=== PATIENT | female | born 1965 | race Caucasian/White ===

== ENCOUNTER 2024-03-17 14:21 | Inpatient (IN) | payer OTHER, SELFPAY ==
[2024-03-17 08:00] VITALS: BP 169/111
--- NOTE | 2024-03-17 09:02 | ED.GENMED ---
History of Present Illness
General
Chief Complaint: Abdominal Pain
Time Seen by Provider: 03/17/24 08:48
Travel History
Have you had any contact with someone who has COVID-19?: No
Do you have any symptoms of coronavirus? Fever > 100 degrees, chills, cough, shortness of breath, sore throat, loss of taste or smell, muscle aches, or headache?: No
History of Present Illness
History of Present Illness:
58-year-old female with history of hepatitis C, drug induced cardiomyopathy, tobacco abuse, and hypertension presents to the emergency department for ration of epigastric pain over the past 3 days. She associates this with nausea and a headache,
denies vomiting, diarrhea, or melena stools. Pain is pleuritic in nature and she feels as though she cannot take a deep breath. Denies frequent alcohol use or NSAID use. No associated fevers or chills. Prior abdominal surgeries include
hysterectomy and appendectomy
Review of Systems
Review of Systems
Allergies reviewed?: Yes
All Other Systems: ROS reviewed and negative except as documented in HPI and ROS
Phy Exam
Physical Exam
Physical Exam:
GEN: Appears uncomfortable, nontoxic
Eyes: PERRLA, EOMs intact, no scleral icterus
HENT: NCAT, oral mucosa moist
Lungs: CTAB, no wheezes, rales, rhonchi, normal chest wall excursion
Cardiac: RRR, no M/R/G, no peripheral edema. Radial pulses 2+ bilat
Abdomen: Soft, exquisitely tender to the right upper quadrant and epigastrium, unable to assess for Pierce sign due to degree of tenderness
Neuro: AO x 3
MSK: No gross deformity or ecchymosis. No edema. No digital clubbing
Skin: No rashes, petechiae. Normal color, no pallor or jaundice.
Psych: Calm, cooperative, proper hygiene
Course
Orders/Labs/Results
Orders:
Orders
03/17/24 08:09
Electrocardiogram (*1) Urgent
Reason for Study: Abdominal Pain
EKG- Treatment ONCE
03/17/24 09:01
0.9% Sodium Chloride 1000 ml [Nss] 1,000 ml IV BOLUS
Morphine Sulfate 4 mg IV NOW STA
Ondansetron Injectable [Zofran] 4 mg IV NOW STA
03/17/24 09:25
Complete Blood Count/With Diff Urgent
Comprehensive Metabolic Panel Urgent
Lipase Urgent
Troponin I Urgent
Urinalysis Reflex To Culture Urgent
Date Specimen was Collected: 03/17/24
Time Specimen was Collected: 09:03
Urine Microscopic Reflex Cult Urgent
Urine Culture Urgent
MASOUD Source: U
Specimen Description:
Date Specimen was Collected: 03/17/24
Time Specimen was Collected: 09:03
03/17/24 10:04
CT Abd/Pel (IV only)-DH only Urgent
Comment:
Reason For Exam: epigastric pain
03/17/24 11:58
Piperacillin/Tazo 3.375 Gram [Zosyn] 3.375 gram in 50 ml IV NOW
03/17/24 12:19
HYDROmorphone [Dilaudid] 0.5 mg IV NOW STA
03/17/24 13:33
Admit/Transfer Patient As Directed
Co-Sign Provider:
Level of Care: Inpatient admission
Assign to:: Medical/Surgical
Physician / Group: Bob
Diagnosis: Acute cholecystitis
Reason for Hospitalization: see progress note
Expected length of stay greater than two midnights?: Yes
ELOS- Estimated Length of Stay in days: 3
I certify the patient meets the requirements for IP care: Yes
03/17/24 13:35
Code Status As Directed
Resuscitation Status: Full Code
Abnormal Lab Results
03/17/24
09:25
RBC 4.04 L 10^6/uL
(4.20-5.40)
Hgb 11.6 L g/dL
(12.0-16.0)
Hct 34.9 L %
(37.0-47.0)
MPV 12.0 H fL
(7.4-10.4)
Absolute Monos (auto) 0.8 H 10^3/uL
(0.1-0.6)
Monocytes % 9.7 H %
(1.7-9.3)
Chloride 108 H mmol/L
(98-107)
BUN 24 H mg/dl
(7-17)
Glucose 100 H mg/dl
(70-99)
Troponin I 0.041 H* ng/ml
Leukocyte Esterase Rfl 1+ A
(Negative)
Urine RBC 3-6 A /HPF
(0-2)
Urine Bacteria (Reflex) Few A
(Negative)
03/17/24 09:25
03/17/24 09:25
Vital Signs
Initial and Last Documented VS:
Initial Vital Signs
Temp Pulse Resp BP Pulse Ox
98.2 F 98 20 169/111 98
03/17/24 08:00 03/17/24 08:00 03/17/24 08:00 03/17/24 08:00 03/17/24 08:00
Last Documented Vital Signs
Temp Pulse Resp BP Pulse Ox
98.2 F 95 17 143/100 96
03/17/24 08:00 03/17/24 11:37 03/17/24 11:37 03/17/24 11:37 03/17/24 11:20
MDM/Problems Addressed
MDM/Problems Addressed:
Workup is highly suspicious for acute cholecystitis given findings on CT scan. No significant transaminitis to suggest choledocholithiasis. Interestingly she has no leukocytosis or fever at this point. Do not feel there is any indication for
follow-up ultrasound given CT findings and exam consistent with acute cholecystitis. Discussed case with general surgery, given the patient's underlying nonischemic cardiomyopathy with severely reduced ejection fraction she is high risk for
operative intervention thus will be admitted to the hospitalist service for further medical optimization and cardiac clearance, IV Zosyn initiated
Comment
Comment:
EKG independently interpreted by me shows a normal sinus rhythm with 6% lateral ST depressions with T wave inversions suggestive LVH prolonged QT interval of 490
*Critical Care Note
Total Time (30-74mins, 75-104mins- exclusive of procedures): Not Applicable
ED Attending Note
-
Portions of this chart may have been created with voice recognition software.� Occasional wrong word or��sound alike� substitutions may have occurred due to the inherent limitations of voice recognition software.
Discharge Plan
Departure
Patient Disposition: Admit
Date of Disposition: 03/17/24
Time of Disposition: 12:19
Admit to: Med/Surg
Presentation/result/management discussed w/ accepting MD/DO: Hospitalist
Discharge Problem:
Acute cholecystitis, Elevated troponin level not due to acute coronary syndrome
Prescriptions:
No Action
furosemide 40 mg tablet
40 mg PO DAILY
metoprolol succinate 50 mg tablet extended release 24 hr
50 mg PO DAILY
spironolactone 25 mg tablet
12.5 mg PO DAILY
aspirin 81 mg tablet,chewable
81 mg PO DAILY
mirtazapine 15 mg tablet
15 mg PO HS
dapagliflozin propanediol [Farxiga] 10 mg tablet
10 mg PO DAILY
Entresto 24-26 mg tablet
1 tab PO BID
Referrals:
Suzanne Cabrera DO [Family Provider] -
Interventions
Interventions:
*Risk Screen - Suicide Last Done: 03/17/24 09:23
*General Assessment Last Done: 03/17/24 09:21
*Neglect/Abuse Screening Last Done: 03/17/24 09:23
IX-Ljkrdi-Lrkatraljl Assessment Last Done: 03/17/24 09:25
Discharge Date and Time
Print Language: ANGUILLAN
[2024-03-17] MEDS: NSS 1000 IV ×2 (09:19→17:14)
[2024-03-17] MEDS: MORPHINE SULFATE 4 MG IV (09:20)
[2024-03-17] MEDS: ZOFRAN 4 MG IV (09:20)
[2024-03-17 09:21] VITALS: BMI 29.8
[2024-03-17 09:45] LABS: % Basophils 0.5 % (0-2); % Eosinophils 1.4 % (0-6); % Immature Granulocytes 0.2 % (0-0.5); % Lymphocytes 40.3 % (20.5-51.1); % Monocytes 9.7 % (1.7-9.3); % Neutrophils 47.9 % (42.2-75.2); Absolute Eosinophils 0.1 10^3/uL (0-0.7); Absolute Lymphocytes 3.4 10^3/uL (1.2-3.4); Absolute Monocytes 0.8 10^3/uL (0.1-0.6); Hematocrit 34.9 % (37.0-47.0); Hemoglobin 11.6 g/dL (12.0-16.0); Mean Corp Hgb Conc. 33.2 g/dL (33.0-37.0); Mean Corpuscular Hgb 28.7 pg (27.0-31.0); Mean Corpuscular Volume 86.4 fL (81.0-99.0); Nucleated Red Blood Cells % 0 %; Platelet Count 201 10^3/uL (130-400); Red Blood Cell Count 4.04 10^6/uL (4.20-5.40); Red Cell Dist. Width 13.1 % (11.5-14.5); White Blood Cell Count 8.4 10^3/uL (4.8-10.8)
[2024-03-17 09:56] VITALS: BP 142/97
[2024-03-17 10:03] LABS: ALT (SGPT) 33 U/L (0-35); AST (SGOT) 36 U/L (14-36); Albumin 3.9 g/dl (3.5-5.0); Alkaline Phosphatase 64 U/L (38-126); Blood Urea Nitrogen 24 mg/dl (7-17); Calcium 8.4 mg/dl (8.4-10.2); Carbon Dioxide 23 mmol/L (22-30); Chloride 108 mmol/L (98-107); Estimated Creatinine Clearance 80 ml/min; Glucose 100 mg/dl (70-99); Lipase 107 U/L (23-300); Potassium 3.9 mmol/L (3.5-5.1); Sodium 140 mmol/L (135-145); Total Bilirubin 0.6 mg/dl (0.2-1.3); Total Protein 6.7 g/dl (6.3-8.2); eGFR > 60.00
[2024-03-17 10:11] LABS: Urine Albumin Trace (Neg - Trace); Urine Bilirubin Negative (Negative); Urine Character Clear (Clear); Urine Color Yellow; Urine Glucose Negative (Negative); Urine Ketone Negative (Negative); Urine Leukocyte 1+ (Negative); Urine Nitrite Negative (Negative); Urine Occult Blood Negative (Negative); Urine Specific Gravity 1.025 (<1.030); Urine Urobilinogen 1+ (Neg - 1+)
[2024-03-17 10:21] LABS: Troponin I 0.041 ng/ml
[2024-03-17 10:38] LABS: Urine Squamous Cell >30 /LPF (Few)
[2024-03-17 10:39] LABS: Urine Bacteria Few (Negative); Urine Calcium Oxalate Crystals Present
[2024-03-17 11:37] VITALS: BP 143/100
[2024-03-17] MEDS: ZOSYN 50 IV (12:55)
[2024-03-17] MEDS: DILAUDID 0.5 MG IV (12:56)
--- NOTE | 2024-03-17 13:40 | CON.GS ---
Medical History
-
Chief Complaint: Epigastric abdominal pain
History of Present Illness:
Patient is a 58 yo F with a PMH of HTN, history of drug abuse c/b HCV and drug-induced cardiomyopathy (EF 20% on TTE in 04/2023), and active tobacco use. She is coming to the hospital by her friend who helps provide some clinical history. Reports
feeling unwell with increased deconditioning and SOB over the past several months. Approximately 3 days ago she acutely developed epigastric and upper central abdominal pain radiating to her back. Symptoms occurred at night and awoke her from
sleep. Since that time she has had persistent abdominal discomfort. Symptoms worsened prompting presentation to the ED. Associated nausea, but no vomiting. No fevers or chills. No fluctuations in stools. No jaundice, pale stools, or tea
colored urine. She denies any prior history of RUQ or epigastric abdominal pain. Of note, she follows with Dr. Cobb, last evaluated in 05/2023 with plans for repeat TTE in 07/2023, s He had he did not follow-up.
Past Medical History
Past Medical History: CHF, HTN and Other (HCV)
Past Surgical History: Appendectomy, Gynecological (Hysterectomy) and Other (Abdominoplasty)
Social History
Tobacco: Smoker
Alcohol: None
Drug: Cocaine, IVDA and Other (Phencyclidine, amphetamines, methamphetamines, BZD's)
Family History
Family History: Reviewed & Noncontributory
Allergies / Home Medications
Allergy/AdvReac Type Severity Reaction Status Date / Time
ipecac Allergy Unknown Verified 03/17/24 08:07
prochlorperazine Allergy Unknown Verified 03/17/24 08:07
�Medication �Instructions �Recorded �Confirmed �Type
aspirin 81 mg chewable tablet 81 mg PO DAILY Blood Clot 03/17/24 03/17/24 History
Prevention/Tx
dapagliflozin propanediol 10 mg 10 mg PO DAILY Heart Failure 03/17/24 03/17/24 History
tablet (Farxiga)
furosemide 40 mg tablet 40 mg PO DAILY Fluid 03/17/24 03/17/24 History
Retention/Swelling
metoprolol succinate 50 mg 50 mg PO DAILY Heart Failure 03/17/24 03/17/24 History
tablet,extended release 24 hr
mirtazapine 15 mg tablet 15 mg PO HS Mental Health 03/17/24 03/17/24 History
sacubitril 24 mg-valsartan 26 mg 1 tab PO BID Heart Failure 03/17/24 03/17/24 History
tablet (Entresto)
spironolactone 25 mg tablet 12.5 mg PO DAILY Heart Failure 03/17/24 03/17/24 History
Review of Systems
-
A 10 point review of systems was completed, and was negative except as per HPI.
Physical Exam
Vital Signs
Temp Pulse Resp BP Pulse Ox
98.2 F 95 17 143/100 96
03/17/24 08:00 03/17/24 11:37 03/17/24 11:37 03/17/24 11:37 03/17/24 11:20
03/16/24 03/17/24 03/18/24
06:59 06:59 06:59
Actual Weight 78.6 kg
Body Mass Index (BMI) 29.8
Lab Results
03/17/24 09:25
03/17/24 09:25
WBC 8.4 10^3/uL (4.8-10.8) 03/17/24 09:25
Hgb 11.6 g/dL (12.0-16.0) L 03/17/24 09:25
Hct 34.9 % (37.0-47.0) L 03/17/24 09:25
Plt Count 201 10^3/uL (130-400) 03/17/24 09:25
Abs Immat Gran (auto) 0.0 10^3/uL (0-0.05) 03/17/24 09:25
Neutrophils % 47.9 % (42.2-75.2) 03/17/24 09:25
Physical Exam
General: Well Developed, Well Nourished and Pain
HEENT: Normocephalic and Anicteric
Respiratory: Rhonchi and Accessory Resp Muscle Use
Cardiac: Regular Rhythm
GI: Soft, Non Distended, Tender (Epigastrium and RUQ) and Other (Non-peritoneal)
Musculoskeletal: No Edema
Skin: Warm and Dry
Neuro: Nonfocal/Grossly Intact
Data Reviewed
-
CT Scan: Image Personally Visualized and interpreted and Report Reviewed by me
Ultrasound: Image Personally Visualized and interpreted and Report Reviewed by me
Labs: Labs Reviewed by me
Old Records: Reviewed
Assessment / Plan
-
Patient is a 58 yo F p/w upper abdominal pain most likely biliary in origin given imaging.
The natural history and pathophysiology of biliary and stone disease was discussed. Anatomy was reviewed. Work-up thus far including US, CT scan, and labs were reviewed. US without stones though likely sludge and polyp without dilation and with
some thickening. CT scan demonstrates edema around the gallbladder and periportal area with what appears to be a dilated CBD and/or pancreatic duct. Increased risk for operative complications given her significant heart history. Recommend
Cardiology consultation and likely repeat TTE for risk stratification. Plan for MRI abdomen in the interim to better elucidate her biliary ductal dilation and rule out alternative pathology. Pending the results of imaging and her risk
stratification we briefly discussed proceeding with cholecystectomy versus cholecystostomy tube placement. Pros and cons of both approaches was discussed. All questions answered.
-- MRI abdomen
-- Cardiology consult, TTE, risk stratification
-- NPO, IVF
-- Abx: Zosyn
-- Admit to Hospitalist
--- NOTE | 2024-03-17 14:58 | HPS.HSE ---
Family Physician
-
Family Physician: Suzanne Cabrera
Chief Complaint
-
Abdominal pain
History of Present Illness
Patient presents with 3 days of abdominal pain.
The epigastric and area. Radiates up and into the back. Score is 9 out of 10. Cannot breath sometimes because of the pain in epigastric area.
It is a constant pain. Cannot eat. Nauseous. No vomiting. No fevers. Never had similar complaints. Denies any NSAID use.
CT imaging shows concerns for cholecystitis.
She had cardiomyopathy from drug use diagnosed a year ago. She says she has been compliant with her medication and follows-up with a precision millwright. Denies any exertional shortness of breath chest pains or angina. Coming to the hospital.
She denies any alcohol use. Smokes currently. Denies any further drug use.
Medical History
Past Medical History
Past Medical History: Reports CHF, HTN and Other (Nonischemic cardiomyopathy, history of polysubstance abuse, history of hepatitis C)
Past Surgical History: Reports None
Social History
Tobacco: Smoker
Alcohol: None
Drug: Former User
Living: With Family
Family History
Family History: Not pertinent
Allergies / Home Medications
Allergies reflects when Allergies were last updated in [employer].
Home Medications with original date entered in [employer]
Allergy/Medication List:
Allergies
Allergy/AdvReac Type Severity Reaction Status Date / Time
ipecac Allergy Unknown Verified 03/17/24 08:07
prochlorperazine Allergy Unknown Verified 03/17/24 08:07
Home Medications
aspirin 81 mg chewable tablet 81 mg PO DAILY Blood Clot Prevention/Tx 03/17/24
dapagliflozin propanediol 10 mg tablet (Farxiga) 10 mg PO DAILY Heart Failure 03/17/24
furosemide 40 mg tablet 40 mg PO DAILY Fluid Retention/Swelling 03/17/24
metoprolol succinate 50 mg tablet,extended release 24 hr 50 mg PO DAILY Heart Failure 03/17/24
mirtazapine 15 mg tablet 15 mg PO Mental Health 03/17/24
sacubitril 24 mg-valsartan 26 mg tablet (Entresto) 1 tab PO BID Heart Failure 03/17/24
spironolactone 25 mg tablet 12.5 mg PO DAILY Heart Failure 03/17/24
Review of Systems
-
A 12 point ROS was completed and negative except as noted: Yes
Physical Exam
Vital Signs
Vital Signs
Temp Pulse Resp BP Pulse Ox
98.2 F 95 17 143/100 96
03/17/24 08:00 03/17/24 11:37 03/17/24 11:37 03/17/24 11:37 03/17/24 11:20
Physical Exam
General: Comfortable
HEENT: Moist mucous membranes
Respiratory: Clear
Cardiac: S1/S2 and Regular Rhythm
GI: Soft, Non Distended, Normal Bowel Sounds and Tender (In epigastric and right upper quadrant area.)
Neuro: AO x 3
Psych: Calm
Laboratory Results
-
03/17/24 09:25
03/17/24 09:25
Laboratory Results
Total Bilirubin 0.6 mg/dl (0.2-1.3) 03/17/24 09:25
AST 36 U/L (14-36) 03/17/24 09:25
ALT 33 U/L (0-35) 03/17/24 09:25
Alkaline Phosphatase 64 U/L (38-126) 03/17/24 09:25
Troponin I 0.041 ng/ml H* 03/17/24 09:25
Lipase 107 U/L (23-300) 03/17/24 09:25
Data Reviewed
-
CT Scan: Report Reviewed by me (CT abdomen pelvis)
Lab Data: Labs Reviewed by me
Impression/Plan
-
Acute cholecystitis-admit to hospital. Keep NPO. Check an MRI with MRCP of abdomen. Consult surgery. Start on empirical ceftriaxone and Flagyl. Start on antiemetics and pain regimen.
LFTs are normal including lipase.
Nonischemic cardiomyopathy from drug use-no clinical evidence of heart failure. No angina. She had a cardiac catheterization last year without any obstruction. Continue with her home regimen. Consult cardiology for preop eval.
Hypertension-continue the home medications and follow-up.
--- NOTE | 2024-03-17 16:22 | CON.CAR ---
Addendum entered and electronically signed by Yimi Zabala MD 03/17/24 17:02:
I saw and examined the patient.
The MACHINE OPERATOR SLITTER TECHNICIAN or PA's note was reviewed and I agree with the note.
Comment: Moderate pain at present
Neck: Supple, no JVD, HJR, carotids +2 B/L, no bruits bilaterally.
Heart: Non displaced PMI, RRR, no murmurs, No S3, S4, no rubs.
Lungs: Clear to auscultation bilaterally, no wheeze, rhonchi, rubs bilaterally,
normal expiratory phase.
Abdomen: Normal bowel sounds, soft, non-tender, non-distended.
Extremities: No clubbing, cyanosis or edema bilaterally.
Neuro: In moderate pain at present
Charleen has a history of nonischemic cardiomyopathy with ejection fraction of 20 to 25% in April 2023 who was noncompliant with follow-up. She has a history of polysubstance abuse,tobacco abuse, hypertension, hepatitis C. She presents with 3 days
of abdominal pain and acute cholecystitis. Cardiology is consulted for preoperative evaluation.
Will await results of echocardiogram. If surgery is needed emergently with fear of sepsis and complications of cholecystitis would proceed without further testing. Risk will be increased but not prohibitive. She has been noncompliant with
follow-up. AICD was discussed in the past if ejection fraction remains reduced but unclear if she has been compliant with medications.
Original Note:
Consultation
Consultation Request
Date/Time Consultation Requested: 03/17/24
Date/Time Consultation Performed: 03/17/24
Requesting Provider: Dr. Bob
Performing Provider: Dr. Zabala
Reason for Consultation: Preo-operative evaluation, cardiomyopathy, noncompliance
Medical History
-
History of Present Illness:
Patient came to [facility] AT [facility] today with 3 days worth of abdominal pain and was found to have acute cholecystitis and cardiology has been asked to evaluate for preoperative risk stratification due to h/o NICM. Patient previously admitted to 04/2023 in the
setting of acute HF. Patient was found to have a newly reduced EF at 20-25% and subsequent cath showed nonobstructive CAD. Patient was managed as a nonischemic cardiomyopathy and was started on GDMT including Entresto 24/26 mg BID, Farxiga 10 mg
daily, Lasix 40 mg daily, Toprol XL 25 mg daily and spironolactone 12.5 mg daily. Patient was seen in the cardiology office once after that admission, on 05/24/23, and her Toprol XL was decreased to 25 mg daily. Patient was scheduled for a follow up
echo and office visit 09/03/23 and was a no-show. Patient now comes to [facility] AT [facility] with abdominal pain and is being admitted with acute cholecystitis. On abdominal MRI there was evidence of pleural effusions and acute interstitial cardiogenic pulmonary
edema. No chest pain. No SOB. She says she is taking all meds as previously prescribed although her med list has Toprol XL at 50 mg daily instead of the lower dose that was ordered at last office visit. Still smoking. Says she is not using any drugs.
PMH:
NICM EF 20-25% by echo 05/13/23
Nonobstructive CAD by cath 05/16/23
h/o polysubstance abuse including meth, cocaine and benzodiazepines
Active smoker
Hypertension
Hepatitis C history untreated
PVCs
Past Medical History
Past Medical History: Other (in HPI)
Past Surgical History: Gynecological (hysterectomy) and Tonsilectomy
Social History
Tobacco: Smoker
Alcohol: None
Drug: Former User
Family History
Family History: Other (father with renal cell carcinoma)
Allergies / Home Medications
Allergy/AdvReac Type Severity Reaction Status Date / Time
ipecac Allergy Unknown Verified 03/17/24 08:07
prochlorperazine Allergy Unknown Verified 03/17/24 08:07
�Medication �Instructions �Recorded �Confirmed �Type
aspirin 81 mg chewable tablet 81 mg PO DAILY Blood Clot 03/17/24 03/17/24 History
Prevention/Tx
dapagliflozin propanediol 10 mg 10 mg PO DAILY Heart Failure 03/17/24 03/17/24 History
tablet (Farxiga)
furosemide 40 mg tablet 40 mg PO DAILY Fluid 03/17/24 03/17/24 History
Retention/Swelling
metoprolol succinate 50 mg 50 mg PO DAILY Heart Failure 03/17/24 03/17/24 History
tablet,extended release 24 hr
mirtazapine 15 mg tablet 15 mg PO Mental Health 03/17/24 03/17/24 History
sacubitril 24 mg-valsartan 26 mg 1 tab PO BID Heart Failure 03/17/24 03/17/24 History
tablet (Entresto)
spironolactone 25 mg tablet 12.5 mg PO DAILY Heart Failure 03/17/24 03/17/24 History
Review of Systems
-
History Source: Patient
All other systems: Negative unless noted
Physical Exam
Vital Signs
Temp Pulse Resp BP Pulse Ox
98.2 F 95 17 143/100 96
03/17/24 08:00 03/17/24 11:37 03/17/24 11:37 03/17/24 11:37 03/17/24 11:20
GEN: NAD. AAOx3
HEENT: EOMI, MMM
LUNGS: CTA B/L, no wheezes or rales
CV: Reg, S1/S2, 1/6 syst LSB
ABD: soft, BS+, NT, ND
EXT: No edema B/L LE
NEURO: Gross non-focal
SKIN: Warm, dry and pink. No rash
Lab Results
03/17/24 09:25
03/17/24 09:25
Troponin I 0.041 ng/ml H* 03/17/24 09:25
Impression / Plan
-
PCP: Dr. Suzanne Cabrera in [facility] (previously a no-show for Dr. Goldberg's office)
Cardiology: Previously Dr. Zabala, last seen 05/24/23 then no-show for 09/03/23 office visit and echo
Impression:
Abdominal pain and acute cholecystitis 03/17/24
Possible acute HF
B/L pleural effusions
NICM EF 20-25% by echo 05/13/23
Nonobstructive CAD by cath 05/16/23
h/o polysubstance abuse including meth, cocaine and benzodiazepines
Active smoker
Hypertension
Hepatitis C history untreated
PVCs
Prolonged QTc
Echo 05/13/23: Mildly dilated LV, severely reduced LV systolic function with EF 20 to 25%, global hypokinesis, significant biatrial enlargement, mild to moderate MR, mild to moderate TR with mild pulmonary hypertension, pulmonary artery pressure 36
mmHg with trivial pericardial effusion.
Plan:
-Patient came to [facility] AT [facility] today with 3 days worth of abdominal pain and was found to have acute cholecystitis and cardiology has been asked to evaluate for preoperative risk stratification due to h/o NICM. Patient previously admitted to 04/2023 in the
setting of acute HF. Patient was found to have a newly reduced EF at 20-25% and subsequent cath showed nonobstructive CAD. Patient was managed as a nonischemic cardiomyopathy and was started on GDMT including Entresto 24/26 mg BID, Farxiga 10 mg
daily, Lasix 40 mg daily, Toprol XL 25 mg daily and spironolactone 12.5 mg daily. Patient was seen in the cardiology office once after that admission, on 05/24/23, and her Toprol XL was decreased to 25 mg daily. Patient was scheduled for a follow up
echo and office visit 09/03/23 and was a no-show. Patient now comes to [facility] AT [facility] with abdominal pain and is being admitted with acute cholecystitis. On abdominal MRI there was evidence of pleural effusions and acute interstitial cardiogenic pulmonary
edema. No chest pain. No SOB. She says she is taking all meds as previously prescribed although her med list has Toprol XL at 50 mg daily instead of the lower dose that was ordered at last office visit. Still smoking. Says she is not using any drugs.
-Patient was noncompliant with office follow up and echo. She says she is taking meds as previously prescribed.
-Check echo and compare to previous.
-No chest pain and patient had nonobstructive CAD by cath less than a year ago.
-ECG reviewed by me shows SR/ST and QTc is prolonged at 490 ms. Will d/c Zofran. No strong evidence that Remeron prolongs QT. Potassium is 3.9, will supplement. Check magnesium level as well. Recheck ECG in AM
-Cont all cardiac meds as is for now.
-Check pro-BNP and consider IV diuresis.
-No ischemic changes on ECG. Cath less than a year ago was nonobstructive. Will manage as a nonischemic myocardial injury Troponin elevation.
[2024-03-17 16:38] VITALS: BMI 29.9
[2024-03-17 16:44] VITALS: BP 140/96
[2024-03-17] MEDS: MORPHINE SULFATE 2 MG IV (17:15)
[2024-03-17] MEDS: TOPROL XL 50 MG PO (17:18)
[2024-03-17] MEDS: FARXIGA 10 MG PO (17:18)
[2024-03-17] MEDS: ALDACTONE 12.5 MG PO (17:18)
[2024-03-17] MEDS: ROCEPHIN 1000 MG IV (17:19)
[2024-03-17] MEDS: LOW STRENGTH ASPIRIN 81 MG PO (17:19)
[2024-03-17 17:20] LABS: Magnesium 2.1 mg/dl (1.6-2.3)
[2024-03-17] MEDS: STERILE WATER FOR INJECTION 10 ML IV (17:20)
[2024-03-17] MEDS: LOVENOX 40 MG SC (17:21)
[2024-03-17] MEDS: FLAGYL 500 MG 100 IV (17:22)
[2024-03-17 17:32] LABS: NT-proBNP 18900 pg/ml
[2024-03-17] MEDS: ENTRESTO 24 MG/26 MG 1 TAB PO (20:02)
[2024-03-17] MEDS: LASIX 40 MG IV (20:02)
--- NOTE | 2024-03-17 20:20 | PTCARENOTE ---
Hospitalist placed new orders for troponins. Pt w/ h/o cardiomyopathy and c/o epigastric pain. House [employer]SPORT COMPANY MANAGER made aware of initial 0943 troponin 0.041 and asked if pt should be on telemetry - FENCE INSTALLER transferred pt to tele level of care
[2024-03-17 20:52] LABS: Troponin I 0.059 ng/ml
[2024-03-17] MEDS: REMERON 15 MG PO (21:08)
[2024-03-17] MEDS: KCL 20 MEQ PO (21:10)
[2024-03-17 23:09] VITALS: BP 136/88
[2024-03-18] MEDS: FLAGYL 500 MG 100 IV ×3 (02:42→16:43)
[2024-03-18 03:00] VITALS: BP 141/88
[2024-03-18 03:59] VITALS: BP 141/88
[2024-03-18] MEDS: MORPHINE SULFATE 2 MG IV ×3 (04:05→23:33)
[2024-03-18 06:00] VITALS: BMI 29.2
[2024-03-18 08:45] VITALS: BP 140/89
[2024-03-18] MEDS: FARXIGA 10 MG PO (08:46)
[2024-03-18] MEDS: LOW STRENGTH ASPIRIN 81 MG PO (08:48)
[2024-03-18] MEDS: TOPROL XL 50 MG PO (08:48)
[2024-03-18] MEDS: LASIX 40 MG IV ×2 (08:49→16:40)
[2024-03-18] MEDS: ENTRESTO 24 MG/26 MG 1 TAB PO ×2 (08:49→20:21)
[2024-03-18] MEDS: ALDACTONE 12.5 MG PO (08:50)
[2024-03-18 09:01] LABS: ALT (SGPT) 39 U/L (0-35); AST (SGOT) 65 U/L (14-36); Albumin 3.7 g/dl (3.5-5.0); Alkaline Phosphatase 69 U/L (38-126); Blood Urea Nitrogen 24 mg/dl (7-17); Carbon Dioxide 17 mmol/L (22-30); Chloride 107 mmol/L (98-107); Estimated Creatinine Clearance 63 ml/min; Glucose 90 mg/dl (70-99); Potassium 4.8 mmol/L (3.5-5.1); Sodium 137 mmol/L (135-145); Total Bilirubin 1.3 mg/dl (0.2-1.3); Total Protein 6.6 g/dl (6.3-8.2); eGFR > 60.00
--- NOTE | 2024-03-18 10:00 | W.PN.HOSP.TC ---
Today's Communication/Plan
-
continue the pain regimen and empirical antibiotics
Continue with IV Lasix
Consult GI
Assessment / Plan
Assessment / Plan
Acute abdominal pain with radiological concern for acute cholecystitis.MRI with MRCP of abdomen she also no cholelithiasis but there is a biliary sludge in the gallbladder. Gallbladder wall is thickened as well. It also shows dilatation of the
common hepatic duct but not of CBD-Unclear etiology for this. LFTs are normal including lipase on admission. Surgery is following. Will get a GI input for endoscopic ultrasound and ERCP with biliary ductal dilatation. Continue with empirical
ceftriaxone and Flagyl.cw antiemetics and pain regimen.
Acute CHF decompensation-patient tells me she had some shortness of breath with wheezing prior to coming into the hospital. She was noted to have acute pulmonary edema on the MRI of the abdomen , the chest x-ray also shows vascular congestion. BNP
is up. She is initiated on IV Lasix 40 mg twice daily for now.
Echocardiogram on this admission shows still severely reduced EF of 20 to 25% and stage II diastolic dysfunction. Dilated right ventricle with reduced right systolic function noted; moderate MR noted. Pulmonary arterial pressure 45-50 mmHg.
Cardiology following.
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 She had a cardiac catheterization last year without any obstruction. Continue with her home regimen.
Troponin elevation-suspect nonischemic myocardial injury
Hypertension-continue the home medications and follow-up.
MYLENE Miles today about plan
GI consult
Anticipated Discharge: > 48 hours
Subjective/Interval History
-
Date of Service: March 18, 2024
Patient still with abdominal pain and points to the epigastric in the right upper quadrant. Rates it as 7/10. No nausea or vomiting.
Breathing is better than yesterday. She was noticing some wheeze before coming to the hospital.
No chest pains.
Objective Data
-
Labs:
Laboratory Results
03/18/24 03/18/24
05:51 07:36
Sodium Cancelled 137
Potassium Cancelled 4.8
Chloride Cancelled 107
Carbon Dioxide Cancelled 17 L
BUN Cancelled 24 H
Creatinine Cancelled 1.0
Glucose Cancelled 90
Calcium Cancelled 9.0
Total Bilirubin Cancelled 1.3
AST Cancelled 65 H
ALT Cancelled 39 H
Alkaline Phosphatase Cancelled 69
Vital Signs:
Vital Signs
Temp Pulse Resp BP Pulse Ox
98.2 F 84 16 140/89 95
03/18/24 08:45 03/18/24 08:48 03/18/24 08:45 03/18/24 08:48 03/18/24 08:45
I&O
03/17/24 03/18/24 03/19/24
06:59 06:59 06:59
Intake Total 160 / 160
Output Total 1300 / 1300
Balance -1140 / -1140
Review of Systems
-
Constitutional: Denies Fever
Neuro: Denies Dizzy
Physical Exam
-
General: No Apparent Distress
HEENT: Moist Mucous Membranes
Respiratory: Negative Wheezes or Crackles
Cardiac: Regular Rhythm and S1/S2
Neuro: AO x 3
Psych: Calm
Data Reviewed
-
MRI: Report Reviewed by me (mri abdomen)
Labs: Labs Reviewed by me
--- NOTE | 2024-03-18 10:03 | CON.GI ---
Addendum entered and electronically signed by Stefany Benavides MD 03/18/24 14:06:
I saw and examined the patient.
The PLASTICS SCIENTIST's note was reviewed and I agree with the note.
Comment: This is a 58-year-old female who has a history of NICM with decreased EF 20- 25 %, polysubstance abuse but she says she has not used meth in the past 1 year, she denies prior history of IVDA, hep C untreated and rest as below who presented
with acute onset of epigastric pain and right upper quadrant pain for 3 days prior to admission. CT, ultrasound and MRI since admission show gallbladder wall thickening and also small gallbladder polyp no obvious stones were noted and patient is
currently on antibiotics for probable acute cholecystitis and surgery has been consulted also also being seen by cardiology. MRCP with no obvious CBD stone or gallstones.
Assessment and plan
1. Acute cholecystitis continue antibiotics and timing of cholecystectomy per surgery versus percutaneous drain, cardiology has been consulted for preop clearance
2. Cirrhosis noted on imaging may be related to chronic hepatitis C and also cardiogenic cirrhosis. Will need further workup and treatment for hepatitis C as outpatient
3. She also was noted to have 2.7 cm pancreatic cyst and will need eventual endoscopic ultrasound and also colonoscopy for screening as outpatient.
Original Note:
Consultation
-
Date/Time Consultation Requested: 03/18/24 0800
Date/Time Consultation Performed: 03/18/24 1000
Requesting Provider: Rigoberto Bob MD
Performing Provider: ANUEL Sosa, Stefany Benavides MD
Reason for Consultation: abdominal pain, abnormal imaging
Medical History
Chief Complaint / HPI
Chief Complaint: abdominal pain, shortness of breath
History of Present Illness:
Pt is a 58yo with hx polysubstance abuse(denies use in past year), drug induced cardiomyopathy, hepatitis C untreated, HTN, tobacco abuse presents to ER 03/17 with epigastric pain, shortness of breath with nausea and headache. Imaging on admission
-- Ct with GB distention with wall thickening suggesting cholecystitis there was cystic prominence of head of pancreas related to GB distention and possible duct dilatation and MRI was recommended. Follow up MRI without contrast with mild HM and
mild hepatic cirrhosis (possible cardiogenic cirrhosis from passive hepatic venous congestion) with severe periportal edema in liver and severe diffuse chronic gallbladder wall edema with extrahepatic biliary dilatation with common hepatic duct 1.2
cm, CBD 7.1 mm no choledocholithiasis. Also noted 2.7 mm pancreatic cyst communicating with side branch. CXR c/w CHF. Labs with noted hbg 11.6 with bili 1.3, AST 65, ALT 39, alk phos 39. Echo completed with concern for severely reduced LV
systolic function with EF 20-25% with dilated right ventricle, severe dilated atria, mod MR, mild to mod TR.
In reviewing with patient she was admitted in April 2023 with acute pulm edema with positive tox screen with abnormal echo with EF 25 % cath with non obstructive CAD with concern from drug induced CM. she states she quit drug use at that time and
now noted continued shortness of breath but increase abdominal pain last 3 days prior to admission. She states improved with pain meds and unable to state what makes pain worse. Pain is epigastric and constant with some nausea without vomiting.
She denies dysphagia GERD, diarrhea, constipation or bleeding. No change in stool or urine color. She admits to diagnosis of hep C last year without treatment. She denies hx IV drug use even years ago. + old tattoos back to age 17. no
transfusions.
Past Medical History
Past Medical History: Arrhythmias (PVC's), CAD (non obstructive), HTN and Other (hepatitis C, polysubstance abuse, drug induced cardiomyopathy, tobacco abuse, pulm nodules )
Past Surgical History: Other (b/l breast implants)
Social History
Tobacco: Smoker
Alcohol: None
Drug: Former User
Living: Alone
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
Family History
Family History: Other (no family hx colon or liver issues )
Allergies / Home Medications
Allergy/AdvReac Type Severity Reaction Status Date / Time
ipecac Allergy Unknown Verified 03/17/24 08:07
prochlorperazine Allergy Unknown Verified 03/17/24 08:07
�Medication �Instructions �Recorded
aspirin 81 mg chewable tablet 81 mg PO DAILY Blood Clot 03/17/24
Prevention/Tx
dapagliflozin propanediol 10 mg 10 mg PO DAILY Heart Failure 03/17/24
tablet (Farxiga)
furosemide 40 mg tablet 40 mg PO DAILY Fluid 03/17/24
Retention/Swelling
metoprolol succinate 50 mg 50 mg PO DAILY Heart Failure 03/17/24
tablet,extended release 24 hr
mirtazapine 15 mg tablet 15 mg PO Mental Health 03/17/24
sacubitril 24 mg-valsartan 26 mg 1 tab PO BID Heart Failure 03/17/24
tablet (Entresto)
spironolactone 25 mg tablet 12.5 mg PO DAILY Heart Failure 03/17/24
Review of Systems
-
History Source: Patient
Constitutional: Reports Chills
EENT: Reports No Symptoms
Respiratory: Reports Trouble Breathing
Abdomen/GI: Reports Abdominal Pain and Nausea
: Reports No Symptoms
Musculoskeletal: Reports No Symptoms
Skin: Reports No Symptoms
Neurological: Reports Weakness
Endocrine: Reports No Symptoms
Hematologic/Lymphatic: Reports No Symptoms
Vital Signs
Temp Pulse Resp BP Pulse Ox
98.2 F 84 16 140/89 95
03/18/24 08:45 03/18/24 08:48 03/18/24 08:45 03/18/24 08:48 03/18/24 08:45
Physical Exam
Exam
General: Other (awake and alert )
HEENT: Normocephalic and Anicteric
Respiratory: Other (short of breath at rest )
Cardiac: Regular Rhythm
GI: Soft, Non Distended and Tender (epigastric pain )
Musculoskeletal: No Clubbing and No Cyanosis
Skin: Warm and Dry
Neuro: Awake, Alert and AO x 3
Psych: Calm
Results
WBC 8.4 10^3/uL (4.8-10.8) 03/17/24 09:25
Hgb 11.6 g/dL (12.0-16.0) L 03/17/24 09:25
Hct 34.9 % (37.0-47.0) L 03/17/24 09:25
MCV 86.4 fL (81.0-99.0) 03/17/24 09:25
Plt Count 201 10^3/uL (130-400) 03/17/24 09:25
Absolute Neuts (auto) 4.0 10^3/uL (1.4-6.5) 03/17/24 09:25
Sodium 137 mmol/L (135-145) 03/18/24 07:36
Potassium 4.8 mmol/L (3.5-5.1) 03/18/24 07:36
Chloride 107 mmol/L (98-107) 03/18/24 07:36
Carbon Dioxide 17 mmol/L (22-30) L 03/18/24 07:36
BUN 24 mg/dl (7-17) H 03/18/24 07:36
Creatinine 1.0 mg/dL (0.6-1.0) 03/18/24 07:36
Calcium 9.0 mg/dl (8.4-10.2) 03/18/24 07:36
Total Bilirubin 1.3 mg/dl (0.2-1.3) 03/18/24 07:36
AST 65 U/L (14-36) H 03/18/24 07:36
ALT 39 U/L (0-35) H 03/18/24 07:36
Alkaline Phosphatase 69 U/L (38-126) 03/18/24 07:36
Lipase 107 U/L (23-300) 03/17/24 09:25
Diagnostic Image Results:
03/17/24 MR Abdomen Without Contrast
1. Mild hepatomegaly and mild hepatic cirrhosis (possibly cardiogenic cirrhosis from passive hepatic venous congestion).
2. Severe periportal edema in the liver.
3. Severe diffuse chronic gallbladder wall edema.
4. Mild extrahepatic biliary dilatation.
5. 2.7 mm pancreatic cyst.
6. Moderate chronic bilateral renal disease.
7. Moderate cardiomegaly.
8. Acute interstitial cardiogenic pulmonary edema.
9. Small bilateral pleural effusions.
03/17/24 CT Abd/Pel (IV only)-DH only
1).The gallbladder is distended with wall thickening suggesting cholecystitis.
Cystic prominence at the head of the pancreas is likely related to the gallbladder distention and possible ductal dilatation.
MRI/MRCP may be useful for further evaluation.
2). Multilevel lumbar degenerative disc disease
3). Small right and minimal left pleural effusions with dependent atelectasis at the posterior lung bases
04/2023 US abdomen
1). There is diffuse concentric thickening of the gallbladder wall to approximately 4 mm with minimal pericholecystic edema suggesting possible cholecystitis
2). There is 4 mm gallbladder polyp
3). There is small right-sided pleural effusion
Prior GI Procedures:
EGD: 2002 gastric polyp
Colonoscopy: none
Assessment / Plan
-
Pt is a 58yo with hx polysubstance abuse(denies use in past year), drug induced cardiomyopathy, hepatitis C untreated, HTN, tobacco abuse presents to ER 03/17 with epigastric pain, shortness of breath with nausea and headache. Imaging on admission
-- Ct with GB distention with wall thickening suggesting cholecystitis there was cystic prominence of head of pancreas related to GB distention and possible duct dilatation and MRI was recommended. Follow up MRI without contrast with mild HM and
mild hepatic cirrhosis (possible cardiogenic cirrhosis from passive hepatic venous congestion) with severe periportal edema in liver and severe diffuse chronic gallbladder wall edema with extrahepatic biliary dilatation with common hepatic duct 1.2
cm, CBD 7.1 mm no choledocholithiasis. Also noted 2.7 mm pancreatic cyst communicating with side branch. CXR c/w CHF. Labs with noted hbg 11.6 with bili 1.3, AST 65, ALT 39, alk phos 39. Echo completed with concern for severely reduced LV
systolic function with EF 20-25% with dilated right ventricle, severe dilated atria, mod MR, mild to mod TR.
-abdominal pain
-CT/MRI with gallbladder wall thickening concern for cholecystitis
-changes of cirrhosis on MRI-- may be on basis of cardiogenic/passive congestion
-cystic prominence head of pancreas
-shortness of breath with concern for acute CHF
-b/L effusion
-hx Drug induced CM repeat echol with EF 20-25 %
-elevated troponin
-prior polypsubstance abuse-- pt denies on consultation
-hep C untreated
-2.7 cm pancreatic cyst
other medical problems:
-HTN
-PVC's
-tobacco abuse
-lung nodules
-breast implants
PLAN:
etiology of symptoms with epigastric pain and GB thickening with concern for cholecystitis, passive congestion on liver with CHF and hx drug induced CM with non compliance vs other
cont rx for CHF per cardiology as still with shortness of breath on exam- await further input with repeat echo
check urine tox screen-- pt currently denies drug use since last year
MR with changes of cirrhosis-- may be congestive very minimal ascites unable to tap for SAAG-- if further ascites develops can consider
INR added per surgery await results , platelets and albumin normal
surgery following for kelly
trend LFT's with minimal elevation-- may be with congestion vs chronic hep C
OP work up and treatment for reported hepatitis C-- will need Hep C ab and RNA testing to confirm
consider eventual EUS for panc cyst
Pt with multiple pulm nodules 2022 recommended 3-6 month follow up which was note completed -- work up per hospitalist
-
-
Thank you for consultation and allowing me to participate in the patient's care. Please call the telemetry monitor GI physician during the after hours with any questions or concerns.
[2024-03-18 10:50] LABS: INR 1.32; PT 16.5 Sec (11.4-14.6)
[2024-03-18] MEDS: ROXICODONE 5 MG PO ×2 (11:22→20:26)
[2024-03-18 11:48] VITALS: BMI 29.2
[2024-03-18 12:00] VITALS: BP 150/93
[2024-03-18 12:26] VITALS: BMI 29.2
[2024-03-18] MEDS: NSS 1000 IV ×2 (14:51→22:45)
--- NOTE | 2024-03-18 15:21 | W.PN.CARDCBS ---
Today's Communication / Plan
-
Plan:
-Continue Furosemide 40mg IV BID
-Case management assessment for medication costs and assistance. She has NOT been taking meds for 6 months. Many meds are quite expensive so we need to be sure cost is not barrier to medication compliance
-Surgical and GI evaluation is ongoing.
Impression / Plan
-
PCP: Dr. Suzanne Cabrera in [facility] (previously a no-show for Dr. Goldberg's office)
Cardiology: Previously Dr. Zabala, last seen 05/24/23 then no-show for 09/03/23 office visit and echo
Impression:
-Abdominal pain and possible acute cholecystitis 03/17/24
-Acute on chronic combined systolic and diastolic HFrEF
-B/L pleural effusions
-NICM EF 20-25% by echo 05/13/23
-Nonobstructive CAD by cath 05/16/23
-h/o polysubstance abuse including meth, cocaine and benzodiazepines
-Active smoker
-Hypertension
-Hepatitis C history untreated
-PVCs
-Prolonged QTc
-Medication NONCOMPLIANCE: She told me today that she has been OFF all medications for 6 months or so
Echo 05/13/23: Mildly dilated LV, severely reduced LV systolic function with EF 20 to 25%, global hypokinesis, significant biatrial enlargement, mild to moderate MR, mild to moderate TR with mild pulmonary hypertension, pulmonary artery pressure 36
mmHg with trivial pericardial effusion.
Plan:
-Heart failure medications restarted this admission: She now tells me off all medications for about 6 months.
Toprol XL 50mg po daily, Entresto 1 tab po bid, Aldactone 12.5mg po daily, Farxiga 10mg daily . This is an EXCELLENT HF regimen! Unfortunately, she has NOT been compliant with medication
Still examines volume overloaded: Continue furosemide 40mg IV bid.
May consider further titration of spironolactone if renal fx remains stable
Possible passive congestion may be contributing to symptoms but should not result in dilated CBD and/or pancreatic duct with pericolic edema
She may need case management assistance. Many of the medications she is on are very expensive. She tells me that she just applied for state assistance but not really sure if this is true. If she has commercial insurance she would likely be a
candidate for patient assistance cards to reduce costs but not sure she will be able to navigate this process if complicated. Very difficult social situation
-Possible acute cholecystitis:
GI and surgery have seen patient.
Continue diuresis given concern for hepatic congestion contributing to symptoms (she stopped all medications about 6 months ago)
Surgery has discussed cholecystectomy vs percutaneous GB drain: I would have some concern about followup with percutaneous drain in place. She stopped her HF medications and missed office appointments
If surgery is needed, she will be at moderately increased risk given her cardiomyopathy, however, catheterization less than 1 year ago had nonobstructive CADz
- Echocardiogram pending
- Spent 50 minutes in patient evaluation and coordination. Discussions w GI via TT, reviewed outpatient pharmacy records and prior cath and imaging studies
Progress Note - Unarmed Security Guard
Subjective
Date of Service: March 18, 2024
Patient still reporting some RUQ abdominal pain
Objective
Labs:
03/17/24 09:25
03/18/24 07:36
Labs
Hgb 11.6 g/dL (12.0-16.0) L 03/17/24 09:25
Hct 34.9 % (37.0-47.0) L 03/17/24 09:25
Plt Count 201 10^3/uL (130-400) 03/17/24 09:25
PT 16.5 Sec (11.4-14.6) H 03/18/24 10:12
INR 1.32 03/18/24 10:12
Sodium 137 mmol/L (135-145) 03/18/24 07:36
Potassium 4.8 mmol/L (3.5-5.1) 03/18/24 07:36
BUN 24 mg/dl (7-17) H 03/18/24 07:36
Creatinine 1.0 mg/dL (0.6-1.0) 03/18/24 07:36
Glucose 90 mg/dl (70-99) 03/18/24 07:36
Troponins
03/17/24 03/17/24 03/18/24
09:25 20:09 05:51
Troponin I 0.041 H* 0.059 H* Cancelled
03/18/24
06:41
Troponin I 0.060 H*
Vital Signs and I&O:
Vital Signs
Temp Pulse Resp BP Pulse Ox
97.6 F 81 8 150/93 97
03/18/24 12:00 03/18/24 12:00 03/18/24 12:00 03/18/24 12:00 03/18/24 12:00
Vital Signs
Temp Pulse Resp BP Pulse Ox
97.6 F 81 8 150/93 97
03/18/24 12:00 03/18/24 12:00 03/18/24 12:00 03/18/24 12:00 03/18/24 12:00
Intake & Output
03/15/24 03/16/24 03/17/24 03/18/24
23:59 23:59 23:59 23:59
Intake Total 160 / 160
Output Total 1300 / 1300
Balance 160 / 160 -1300 / -1300
Physical Exam
Physical Exam
Gen: Awake, alert, lying flat in bed. Speaking in complete sentences
HEENT: NC/AT, sclera anicteric
Lungs: Diminished breath sounds at bases bilaterally
CV: RRR with II/ murmur LLSB
Abd: Tender + bowel sounds
Ext: Trace edema
--- NOTE | 2024-03-18 15:35 | W.PN.GS2 ---
Today's Communication / Plan
-
--See above
Assessment / Plan
-
58F with RUQ abd pain likely biliary, other possible etiologies include passive congestion of the liver 2/2 CHF
Work-up thus far including US, CT scan, and labs were reviewed.
LFTs trending up
US without stones though likely sludge and polyp without dilation and with some thickening.
CT scan demonstrates edema around the gallbladder and periportal area with what appears to be a dilated CBD and/or pancreatic duct.
Cardiology on board, new echo shows 20-25% EF
MRI without contrast with mild HM and mild hepatic cirrhosis (possible cardiogenic cirrhosis from passive hepatic venous congestion) with severe periportal edema in liver and severe diffuse chronic gallbladder wall edema with extrahepatic biliary
dilatation with common hepatic duct 1.2 cm, CBD 7.1 mm no choledocholithiasis. Also noted 2.7 mm pancreatic cyst communicating with side branch.
Increased risk for operative complications given her significant cardiac history and cirrhosis. Cirrhosis presently Child Sanchez A.
-- Trend LFTs
-- If continued rise in LFTs, consider EUS
-- Await final Cardiology risk assessment, may benefit from AICD
-- Consider HIDA if no significant improvement over 24-48 hrs, may be nondiagnostic in setting of cirrhosis
-- Abx: Zosyn
-- DVT ppx
-- All other crae as per primary team
Subjective Data
-
Date of Service: March 18, 2024
AFVSS, abd pain controlled, endorses nausea, denies vomiting
Objective Data
-
Intake and Output
03/17/24 03/18/24 03/19/24
06:59 06:59 06:59
Intake Total 160 / 160
Output Total 1300 / 1300
Balance -1140 / -1140
Intake:
IV fluids (Total) 60 / 60
IV piggybacks 100 / 100
Output:
Urine, Voided 1300 / 1300
Vital Signs
Temp Pulse Resp BP Pulse Ox
97.6 F 81 8 150/93 97
03/18/24 12:00 03/18/24 12:00 03/18/24 12:00 03/18/24 12:00 03/18/24 12:00
Lab Results
03/17/24 09:25
03/18/24 07:36
Calcium 9.0 mg/dl (8.4-10.2) 03/18/24 07:36
Magnesium 2.1 mg/dl (1.6-2.3) 03/17/24 09:25
Total Bilirubin 1.3 mg/dl (0.2-1.3) 03/18/24 07:36
AST 65 U/L (14-36) H 03/18/24 07:36
ALT 39 U/L (0-35) H 03/18/24 07:36
Alkaline Phosphatase 69 U/L (38-126) 03/18/24 07:36
Total Protein 6.6 g/dl (6.3-8.2) 03/18/24 07:36
Albumin 3.7 g/dl (3.5-5.0) 03/18/24 07:36
Physical Exam
-
Gen: NAD
Abd: soft, ttp to epigastrium and RUQ
--- NOTE | 2024-03-18 15:47 | CM ---
geriatric care manager reviewed patient's chart and met with patient and patient lives alone in a one story home, patient is independent with adl's and ambulation, no dme, patient has a prescription plan and uses [facility] pharmacy.
PCP: Dr. Cabrera
Plan; Home when stable, no needs.
[2024-03-18 16:00] VITALS: BP 157/97
[2024-03-18] MEDS: ROCEPHIN 1000 MG IV (16:41)
[2024-03-18] MEDS: STERILE WATER FOR INJECTION 10 ML IV (16:41)
[2024-03-18] MEDS: LOVENOX 40 MG SC (16:43)
[2024-03-18 19:00] VITALS: BP 167/98
[2024-03-18] MEDS: REMERON 15 MG PO (20:21)
[2024-03-19] VITALS (10 sets, daily range): BP systolic 146–174; BP diastolic 60–98; BMI 29.1
[2024-03-19] MEDS: FLAGYL 500 MG 100 IV ×3 (01:15→17:01)
[2024-03-19 07:27] LABS: Marijuana Positive (Negative); Methamphetamines Positive (Negative)
[2024-03-19 07:28] LABS: Amphetamines Positive (Negative); Barbiturates Negative (Negative); Benzodiazepines Negative (Negative); Buprenorphine Negative (Negative); Cocaine Negative (Negative); Methadone Negative (Negative); Opiates Positive (Negative); Phencyclidine Negative (Negative); Tricyclic Antidepressants Negative (Negative)
[2024-03-19] MEDS: ENTRESTO 24 MG/26 MG 1 TAB PO ×2 (07:33→20:51)
[2024-03-19] MEDS: TOPROL XL 50 MG PO (07:34)
[2024-03-19] MEDS: ALDACTONE 12.5 MG PO (07:34)
[2024-03-19] MEDS: FARXIGA 10 MG PO (07:34)
[2024-03-19] MEDS: LOW STRENGTH ASPIRIN 81 MG PO (07:34)
[2024-03-19] MEDS: LASIX 40 MG IV ×2 (07:34→16:50)
[2024-03-19] MEDS: MORPHINE SULFATE 2 MG IV (07:45)
[2024-03-19 07:48] LABS: Fentanyl, Urine Negative (Negative)
[2024-03-19 09:18] LABS: Hemoglobin 11.9 g/dL (12.0-16.0); Mean Corp Hgb Conc. 33.1 g/dL (33.0-37.0); Mean Corpuscular Volume 87.8 fL (81.0-99.0); Mean Platelet Volume 12.4 fL (7.4-10.4); Platelet Count 205 10^3/uL (130-400); Red Cell Dist. Width 13.1 % (11.5-14.5); White Blood Cell Count 9.8 10^3/uL (4.8-10.8)
--- NOTE | 2024-03-19 10:11 | W.PN.HOSP.TC ---
Today's Communication/Plan
-
Continue with antibiotics
Continue with the pain regimen
Follow surgery recommendations
Assessment / Plan
Assessment / Plan
Acute abdominal pain with radiological concern for acute cholecystitis.MRI with MRCP of abdomen - no cholelithiasis but there is a biliary sludge in the gallbladder. Gallbladder wall is thickened as well. It also shows dilatation of the common
hepatic duct but not of CBD-Unclear etiology for this. LFTs are normal including lipase on admission. Surgery is following. GI input noted -recommends OP EUS. Continue with empirical ceftriaxone and Flagyl.cw antiemetics and pain regimen.
Follow surgery recs from today.
Acute CHF decompensation-patient tells me she had some shortness of breath with wheezing prior to coming into the hospital. She was noted to have acute pulmonary edema on the MRI of the abdomen , the chest x-ray also shows vascular congestion. BNP
is up. Improved weight close to baseline from last year. cw IV Lasix 40 mg twice daily for now.
Echocardiogram on this admission shows still severely reduced EF of 20 to 25% and stage II diastolic dysfunction. Dilated right ventricle with reduced right systolic function noted; moderate MR noted. Pulmonary arterial pressure 45-50 mmHg.
Cardiology following. Patient has been noncompliant with follow-ups with cardiology.
Check urine drug screen;patient denies any use since last discharge.
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 She had a cardiac catheterization last year without any obstruction. Continue with her home regimen.
Troponin elevation-suspect nonischemic myocardial injury
Hypertension-continue the home medications and follow-up.
CW clear liquid diet for now.
Anticipated Discharge: > 48 hours
Subjective/Interval History
-
Date of Service: March 19, 2024
Persistent abdominal pain.Located in the epigastric and right upper quadrant area Intensity is the same. No change into the nature of the pain; radiates up the central chest.. Still feeling nauseous and no appetite. No fever or chills.
Breathing is okay at rest.
No chest pains.
Objective Data
-
Labs:
Laboratory Results
03/19/24
08:01
WBC 9.8
Hgb 11.9 L
Hct 36.0 L
Plt Count 205
Sodium Pending
Potassium Pending
Chloride Pending
Carbon Dioxide Pending
BUN Pending
Creatinine Pending
Glucose Pending
Calcium Pending
Total Bilirubin Pending
AST Pending
ALT Pending
Alkaline Phosphatase Pending
Vital Signs:
Vital Signs
Temp Pulse Resp BP Pulse Ox
97.5 F 76 20 153/93 94
03/19/24 07:48 03/19/24 07:48 03/19/24 07:48 03/19/24 07:48 03/19/24 07:48
I&O
03/18/24 03/19/24 03/20/24
06:59 06:59 06:59
Intake Total 160 / 160 960 / 960
Output Total 1300 / 1300 200 / 200
Balance -1140 / -1140 760 / 760
Review of Systems
-
Constitutional: Denies Fever or Chills
EENT: Denies Sore Throat
Respiratory: Denies Cough or Trouble Breathing
Cardiac: Denies Chest Pain
Abdomen/GI: Denies Vomiting or Diarrhea
Neuro: Denies Dizzy
Physical Exam
-
General: No Apparent Distress
HEENT: Moist Mucous Membranes
Respiratory: Clear to Auscultation
Cardiac: Regular Rhythm and S1/S2
GI: Soft, Nondistended, Normal Bowel Sounds and Tender (Epigastric and RUQ ;no rebound or guarding)
Neuro: AO x 3; Negative Tremors
Data Reviewed
-
Labs: Labs Reviewed by me
--- NOTE | 2024-03-19 10:18 | W.PN.GS2 ---
Today's Communication / Plan
-
`
Assessment / Plan
-
Assessment: 58 y/o female presenting with acute CHF decompensation, medical noncompliance and acute onset abdominal pain.
Reviewing radiographic imaging studies the findings of gallbladder distention and pericholecystic edema likely secondary to congestion in setting of acute CHF decompensation resulting in acute cholecystitis as a secondary process rather than a
primary gallbladder infectious or obstructive process as there are no gallstones seen on ultrasound, CT or MRI imaging. The gallbladder also appears to be generally edematous but not tensely distended. This edema also extends into the portal
structures.
No leukocytosis nor shift. Afebrile throughout hospitalization -this would be unusual for acalculous cholecystitis mediated by an infectious process.
Normal LFTs on presentation, slight elevation of AST and ALT yesterday but continued normal bilirubin and alkaline phosphatase.
Generality of patient's abdominal pain in the upper abdomen including left upper quadrant, epigastric right upper quadrant on examination also more in line with hepatic/gallbladder congestion likely secondary to acute CHF decompensation.
Plan: Given patient reporting persistent symptoms will obtain HIDA scan to evaluate for gallbladder visualization
Would expect symptoms to improve with ongoing diuresis as hepatic, gallbladder and portal congestion and edema improve slowly with time.
--If HIDA negative advance diet as tolerated as there would be no indications for GB intervention
Will follow pending HIDA results
Subjective Data
-
Date of Service: March 19, 2024
pt seen and examined
continues to report abdominal pain LUQ/epigastric and right sided
no nausea
tolerating clear liquid diet
Objective Data
-
Intake and Output
03/18/24 03/19/24 03/20/24
06:59 06:59 06:59
Intake Total 160 / 160 960 / 960
Output Total 1300 / 1300 200 / 200
Balance -1140 / -1140 760 / 760
Intake:
Oral fluids 960 / 960
IV fluids (Total) 60 / 60
IV piggybacks 100 / 100
Output:
Urine, Voided 1300 / 1300 200 / 200
Vital Signs
Temp Pulse Resp BP Pulse Ox
97.5 F 76 20 153/93 94
03/19/24 07:48 03/19/24 07:48 03/19/24 07:48 03/19/24 07:48 03/19/24 07:48
Lab Results
03/19/24 08:01
Calcium 9.0 mg/dl (8.4-10.2) 03/18/24 07:36
Magnesium 2.1 mg/dl (1.6-2.3) 03/17/24 09:25
Total Bilirubin 1.3 mg/dl (0.2-1.3) 03/18/24 07:36
AST 65 U/L (14-36) H 03/18/24 07:36
ALT 39 U/L (0-35) H 03/18/24 07:36
Alkaline Phosphatase 69 U/L (38-126) 03/18/24 07:36
Total Protein 6.6 g/dl (6.3-8.2) 03/18/24 07:36
Albumin 3.7 g/dl (3.5-5.0) 03/18/24 07:36
Physical Exam
-
NAD AAOx3
ABD: soft, ND, TTP in LUQ, epigastrium, RUQ and RLQ - nonlocalizing
[2024-03-19 11:04] LABS: ALT (SGPT) 323 U/L (0-35); AST (SGOT) 592 U/L (14-36); Albumin 3.5 g/dl (3.5-5.0); Alkaline Phosphatase 79 U/L (38-126); Blood Urea Nitrogen 26 mg/dl (7-17); Calcium 8.5 mg/dl (8.4-10.2); Carbon Dioxide 22 mmol/L (22-30); Chloride 102 mmol/L (98-107); Estimated Creatinine Clearance 53 ml/min; Glucose 90 mg/dl (70-99); Sodium 135 mmol/L (135-145); Total Protein 6.3 g/dl (6.3-8.2); eGFR 53.13
--- NOTE | 2024-03-19 15:16 | W.PN.CARDCBS ---
Addendum entered and electronically signed by Fidel Goff MD 03/19/24 15:41:
I saw and examined the patient.
The Director Of Rehabilitation And Wellness's note was reviewed and I agree with the note.
Comment:
GEN: No distress, awake, Ox3
HEENT: supple, anicteric, mmm
LUNGS: dec BS at bases
CV: Reg, S1/S2, 1/6 syst LSB, no gallop
ABD: soft, BS+, NT/ND
EXT: No edema
NEURO: Gross non-focal
SKIN: No rash
plan:
Would continue to diurese with IV Lasix for another 24 hours. Creatinine is at 1.2.
Continue medical therapy for nonischemic cardiomyopathy. Continue Toprol, Entresto, Aldactone, and Farxiga. Potassium stable at 4.0.
No current plans for gallbladder removal at this time.
I encouraged her to be compliant with her medication and avoid methamphetamines.
Original Note:
Today's Communication / Plan
-
Cont diuresis for now
Cont GDMT and patient should be able to maintain regimen at home using coupon for Entresto and the others are generics available at [facility]
Impression / Plan
-
PCP: Dr. Suzanne Cabrera in [facility] (previously a no-show for Dr. Goldberg's office)
Cardiology: Previously Dr. Zabala, last seen 05/24/23 then no-show for 09/03/23 office visit and echo
Impression:
-Abdominal pain and possible acute cholecystitis 03/17/24
-Acute on chronic combined systolic and diastolic HFrEF
-B/L pleural effusions
-NICM EF 20-25% by echo 05/13/23
-Nonobstructive CAD by cath 05/16/23
-h/o polysubstance abuse including meth, cocaine and benzodiazepines
-Active smoker
-Hypertension
-Hepatitis C history untreated
-PVCs
-Prolonged QTc
-Medication NONCOMPLIANCE: She told me today that she has been OFF all medications for 6 months or so
Echo 05/13/23: Mildly dilated LV, severely reduced LV systolic function with EF 20 to 25%, global hypokinesis, significant biatrial enlargement, mild to moderate MR, mild to moderate TR with mild pulmonary hypertension, pulmonary artery pressure 36
mmHg with trivial pericardial effusion.
Echo 03/18/24: EF 20 to 25% with global hypokinesis, stage II diastolic dysfunction, dilated RV with reduced RV systolic function, moderate MR, mild to moderate TR with PAP 45 to 50 mmHg
Plan:
-Weight is down 4 lbs from admission with initiation of Lasix 40 mg IV BID on 03/18/24. Patient was not taking Lasix 40 mg PO daily as recommended prior to admission.
-EF remains depressed at 20-25% by echo this admission which was surprising given that patient said she was taking all meds as prescribed, but when asked again if she was really taking meds after we checked pharmacy dispensing records and found she
had not picked up refills in 6+ months she admitted that she was not taking any HF meds prior to admission.
-Cont current inpatient orders for Toprol XL 50 mg daily, Entresto 24/26 mg BID, spironolactone 12.5 mg daily and Farxiga 10 mg daily. Patient has commercial insurance and should be able to use coupon card for Entresto. Toprol XL and spironolactone
are generic and can be purchased for about $4/month at [employer]. Farxiga is newly generic and might be more expensive because of that and also [employer] is no longer providing coupon cards for commercial insurance. Will ask CM for help with Farxiga or
perhaps an alternative SGLT-2.
-No chest pain and patient had nonobstructive CAD by cath less than a year ago. Will manage as a nonischemic myocardial injury Troponin elevation.
-Recheck ECG. QTc 497 ms on 03/18/24. Zofran stopped on 03/17/24. Potassium 4.0 and magnesium 2.1 on 03/19/24.
-General surgery service and GI notes reviewed. There is a concern that passive congestion may be contributing to symptoms. LFTs higher on 03/19/24 and ongoing pain so a HIDA scan has been ordered.
-If surgery is needed, she will be at moderately increased risk given her cardiomyopathy, however, catheterization less than 1 year ago had nonobstructive CADz
HPI: [facility] 3 days worth of abdominal pain and was found to have acute cholecystitis and cardiology has been asked to evaluate for preoperative risk stratification due to h/o NICM. Patient previously admitted to 04/2023 in
the setting of acute HF. Patient was found to have a newly reduced EF at 20-25% and subsequent cath showed nonobstructive CAD. Patient was managed as a nonischemic cardiomyopathy and was started on GDMT including Entresto 24/26 mg BID, Farxiga 10 mg
daily, Lasix 40 mg daily, Toprol XL 25 mg daily and spironolactone 12.5 mg daily. Patient was seen in the cardiology office once after that admission, on 05/24/23, and her Toprol XL was decreased to 25 mg daily. Patient was scheduled for a follow up
echo and office visit 09/03/23 and was a no-show. [facility] with abdominal pain and is being admitted with acute cholecystitis. On abdominal MRI there was evidence of pleural effusions and acute interstitial cardiogenic pulmonary
edema. No chest pain. No SOB. She says she is taking all meds as previously prescribed although her med list has Toprol XL at 50 mg daily instead of the lower dose that was ordered at last office visit. Still smoking. Says she is not using any drugs.
Progress Note - [employer]
Subjective
Date of Service: March 19, 2024
Ongoing abdominal pain
Objective
Labs:
03/19/24 08:01
03/19/24 08:01
Labs
Hgb 11.9 g/dL (12.0-16.0) L 03/19/24 08:01
Hct 36.0 % (37.0-47.0) L 03/19/24 08:01
Plt Count 205 10^3/uL (130-400) 03/19/24 08:01
PT 16.5 Sec (11.4-14.6) H 03/18/24 10:12
INR 1.32 03/18/24 10:12
Sodium 135 mmol/L (135-145) 03/19/24 08:01
Potassium 4.0 mmol/L (3.5-5.1) 03/19/24 08:01
BUN 26 mg/dl (7-17) H 03/19/24 08:01
Creatinine 1.2 mg/dL (0.6-1.0) H 03/19/24 08:01
Glucose 90 mg/dl (70-99) 03/19/24 08:01
Troponins
03/17/24 03/17/24 03/18/24
09:25 20:09 05:51
Troponin I 0.041 H* 0.059 H* Cancelled
03/18/24
06:41
Troponin I 0.060 H*
Vital Signs and I&O:
Vital Signs
Temp Pulse Resp BP Pulse Ox
97.7 F 76 18 156/94 97
03/19/24 10:57 03/19/24 10:57 03/19/24 10:57 03/19/24 10:57 03/19/24 10:57
Vital Signs
Temp Pulse Resp BP Pulse Ox
97.7 F 76 18 156/94 97
03/19/24 10:57 03/19/24 10:57 03/19/24 10:57 03/19/24 10:57 03/19/24 10:57
Intake & Output
03/17/24 03/18/24 03/19/24 03/20/24
06:59 06:59 06:59 06:59
Intake Total 160 / 160 960 / 960
Output Total 1300 / 1300 200 / 200
Balance -1140 / -1140 760 / 760
Physical Exam
Physical Exam
GEN: AAOx3
HEENT: MMM
LUNGS: No audible wheeze
CV: DR on tele
ABD: ND
EXT: No edema B/L LE
NEURO: Gross non-focal
SKIN: No rash
--- NOTE | 2024-03-19 16:10 | W.PN.SURGUPD ---
Surgical Update
Surgical Update
HIDA scan completed and normal - prompt uptake and visualization of biliary tree as well as gallbladder so gallbladder remains functional.
Unlikely primary gallbladder pathology here. GB radiographic findings are likely reflective of passive congestion and diffuse portal/hepatic/GB edema from acute heart failure and secondary reactive inflammation.
No evidence of gallbladder obstruction or GB infectious process so no indications for cholecystectomy
Recommend advancement of diet as tolerated to low fat and expectant management of the gallbladder and supportive care of abdominal pain/nausea/GI symptoms. Symptoms should improve with ongoing diuresis as edema improves.
[2024-03-19] MEDS: STERILE WATER FOR INJECTION 10 ML IV (17:00)
[2024-03-19] MEDS: ROCEPHIN 1000 MG IV (17:01)
[2024-03-19] MEDS: LOVENOX 40 MG SC (17:01)
[2024-03-19] MEDS: ROXICODONE 5 MG PO (17:02)
--- NOTE | 2024-03-19 17:28 | W.PN.GI.CBS2 ---
Addendum entered and electronically signed by Stefany Benavides MD 03/19/24 17:40:
HIDA
Impression: No scintigraphic evidence of cystic duct or common bile duct obstruction.
Original Note:
Today's Communication / Plan
-
repeat LFTS in AM
adv diet as tolerated
Assessment / Plan
-
Pt is a 58yo with hx polysubstance abuse(denies use in past year), drug induced cardiomyopathy, hepatitis C untreated, HTN, tobacco abuse presents to ER 03/17 with epigastric pain, shortness of breath with nausea and headache. Imaging on admission
-- Ct with GB distention with wall thickening suggesting cholecystitis there was cystic prominence of head of pancreas related to GB distention and possible duct dilatation and MRI was recommended. Follow up MRI without contrast with mild HM and
mild hepatic cirrhosis (possible cardiogenic cirrhosis from passive hepatic venous congestion) with severe periportal edema in liver and severe diffuse chronic gallbladder wall edema with extrahepatic biliary dilatation with common hepatic duct 1.2
cm, CBD 7.1 mm no choledocholithiasis. Also noted 2.7 mm pancreatic cyst communicating with side branch. CXR c/w CHF. Labs with noted hbg 11.6 with bili 1.3, AST 65, ALT 39, alk phos 39. Echo completed with concern for severely reduced LV
systolic function with EF 20-25% with dilated right ventricle, severe dilated atria, mod MR, mild to mod TR.
-abdominal pain
-CT/MRI with gallbladder wall thickening concern for cholecystitis
-changes of cirrhosis on MRI-- may be on basis of cardiogenic/passive congestion
-cystic prominence head of pancreas
-shortness of breath with concern for acute CHF
-b/L effusion
-hx Drug induced CM repeat echol with EF 20-25 %
-elevated troponin
-prior polypsubstance abuse-- pt denies on consultation
-hep C untreated
-2.7 cm pancreatic cyst
other medical problems:
-HTN
-PVC's
-tobacco abuse
-lung nodules
-breast implants
PLAN:
1. Acute cholecystitis noted on imaging ? from edema/CHF/acalculous but HIDA neg, noted input from surgery no CCY indicated for now. Could DC antibiotics
2. Cirrhosis noted on imaging may be related to chronic hepatitis C and also cardiogenic cirrhosis. Will need further workup and treatment for hepatitis C as outpatient. She denies use of alcohol. She did have significant rise in LFTs today with
AST greater than ALT could be related to underlying CHF with passive congestion and congestive hepatopathy. Blood pressure stable. Will repeat LFTs in a.m. and if further rising may need repeat MRCP versus EUS.
3. She also was noted to have 2.7 cm pancreatic cyst and will need eventual endoscopic ultrasound and also colonoscopy for screening as outpatient.
Subjective
Subjective
Date of Service: March 19, 2024
Pain is improving slowly she is Tolerating clear liquids and noted input from surgery her HIDA scan was negative was cleared to advance diet
Objective
Data Reviewed
Laboratory Data:
Laboratory Results
03/19/24 08:01
03/19/24 08:01
Laboratory Results
PT 16.5 Sec (11.4-14.6) H 03/18/24 10:12
INR 1.32 03/18/24 10:12
Magnesium 2.1 mg/dl (1.6-2.3) 03/17/24 09:25
Total Bilirubin 1.0 mg/dl (0.2-1.3) 03/19/24 08:01
AST 592 U/L (14-36) H* 03/19/24 08:01
ALT 323 U/L (0-35) H 03/19/24 08:01
Alkaline Phosphatase 79 U/L (38-126) 03/19/24 08:01
Lipase 107 U/L (23-300) 03/17/24 09:25
Vital Signs and I&O:
Vital Signs
Temp Pulse Resp BP Pulse Ox
97.6 F 77 19 161/60 96
03/19/24 16:00 03/19/24 16:00 03/19/24 16:00 03/19/24 16:00 03/19/24 16:00
I&O
03/18/24 03/19/24 03/20/24
06:59 06:59 06:59
Intake Total 160 / 160 960 / 960
Output Total 1300 / 1300 200 / 200
Balance -1140 / -1140 760 / 760
Physical Exam
Physical Exam
Cardiology: Normal Sinus Rhythm
Pulmonary: Clear
GI: Soft, Non Distended and Tender (in Epigastric and RUQ)
[2024-03-19] MEDS: REMERON 15 MG PO (20:51)
[2024-03-19] MEDS: MELATONIN 5 MG PO (20:51)
[2024-03-20] VITALS (9 sets, daily range): BP systolic 128–175; BP diastolic 70–94; BMI 27.7
[2024-03-20] MEDS: FLAGYL 500 MG 100 IV ×2 (01:42→08:59)
[2024-03-20] MEDS: MORPHINE SULFATE 2 MG IV (05:32)
[2024-03-20 07:29] LABS: Hematocrit 37.5 % (37.0-47.0); Hemoglobin 12.5 g/dL (12.0-16.0); Mean Corp Hgb Conc. 33.3 g/dL (33.0-37.0); Mean Corpuscular Hgb 28.6 pg (27.0-31.0); Mean Corpuscular Volume 85.8 fL (81.0-99.0); Mean Platelet Volume 12.1 fL (7.4-10.4); Platelet Count 209 10^3/uL (130-400); Red Blood Cell Count 4.37 10^6/uL (4.20-5.40); White Blood Cell Count 8.4 10^3/uL (4.8-10.8)
--- NOTE | 2024-03-20 08:39 | W.PN.GI.CBS2 ---
Today's Communication / Plan
-
Please see assessment and plan for details.
Assessment / Plan
-
1. Abdominal pain/elevated LFTs: In the setting of decompensated cardiomyopathy, likely secondary to passive congestion. She still has HJR on exam, though her shortness of breath and symptoms are all much improved. HIDA scan was negative for
cholecystitis. At this point will await morning LFTs, though again all likely more from passive congestion. Will plan outpatient workup for chronic hepatitis C.
2. Pancreatic cyst: 2.7 mm, without any alarm features, likely plan repeat MRI in 1 year for surveillance.
Subjective
Subjective
Date of Service: March 20, 2024
Patient feeling much better overall, much improved shortness of breath as well as abdominal pain. No fevers or chills overnight.
Objective
Data Reviewed
Laboratory Data:
Laboratory Results
03/20/24 06:49
Laboratory Results
PT 16.5 Sec (11.4-14.6) H 03/18/24 10:12
INR 1.32 03/18/24 10:12
Magnesium 2.1 mg/dl (1.6-2.3) 03/17/24 09:25
Total Bilirubin 1.0 mg/dl (0.2-1.3) 03/19/24 08:01
AST 592 U/L (14-36) H* 03/19/24 08:01
ALT 323 U/L (0-35) H 03/19/24 08:01
Alkaline Phosphatase 79 U/L (38-126) 03/19/24 08:01
Lipase 107 U/L (23-300) 03/17/24 09:25
Vital Signs and I&O:
Vital Signs
Temp Pulse Resp BP Pulse Ox
98.3 F 63 18 159/85 94
03/20/24 07:24 03/20/24 07:24 03/20/24 07:24 03/20/24 07:24 03/20/24 07:24
I&O
03/19/24 03/20/24 03/21/24
06:59 06:59 06:59
Intake Total 960 / 960 660 / 660
Output Total 200 / 200
Balance 760 / 760 660 / 660
Physical Exam
Physical Exam
General: NAD
Abdomen: normal bowel sounds, soft, no tenderness, no masses or bruits, no ascites, positive HJR
[2024-03-20] MEDS: FARXIGA 10 MG PO (08:50)
[2024-03-20] MEDS: ENTRESTO 24 MG/26 MG 1 TAB PO ×2 (08:50→20:55)
[2024-03-20] MEDS: LOW STRENGTH ASPIRIN 81 MG PO (08:50)
[2024-03-20] MEDS: TOPROL XL 50 MG PO (08:51)
[2024-03-20] MEDS: ALDACTONE 12.5 MG PO (08:51)
[2024-03-20] MEDS: LASIX 40 MG IV ×2 (08:51→15:43)
[2024-03-20 09:32] LABS: ALT (SGPT) 475 U/L (0-35); AST (SGOT) 570 U/L (14-36); Albumin 3.5 g/dl (3.5-5.0); Alkaline Phosphatase 77 U/L (38-126); Blood Urea Nitrogen 21 mg/dl (7-17); Calcium 8.7 mg/dl (8.4-10.2); Carbon Dioxide 26 mmol/L (22-30); Chloride 100 mmol/L (98-107); Estimated Creatinine Clearance 56 ml/min; Glucose 119 mg/dl (70-99); Potassium 3.3 mmol/L (3.5-5.1); Sodium 136 mmol/L (135-145); Total Protein 6.4 g/dl (6.3-8.2); eGFR 58.97
--- NOTE | 2024-03-20 09:40 | W.PN.CARDCBS ---
Addendum entered and electronically signed by Fidel Goff MD 03/20/24 16:16:
I saw and examined the patient.
The Welding Machine Operator's note was reviewed and I agree with the note.
Comment:
GEN: No distress, awake, Ox3
HEENT: supple, anicteric, mmm
LUNGS: CTA, no wheezes/rales
CV: Reg, S1/S2, 1/6 syst LSB, no gallop
ABD: soft, BS+, NT/ND
EXT: No edema
NEURO: Gross non-focal
SKIN: No rash
Plan:
She has diuresed well and weight is down significantly. Will switch to Lasix 40 mg daily in the a.m. Creatinine remained stable.
Continue Coreg, Entresto, Aldactone, and Farxiga.
We again discussed the importance of avoiding methamphetamines.
Continue conservative treatment for gallbladder disease.
Continue to follow LFTs. They have stabilized
Original Note:
Today's Communication / Plan
-
Continue IV lasix
Replete K
Continue medical therapy for CM
Impression / Plan
-
PCP: Dr. Suzanne Cabrera in [facility] (previously a no-show for Dr. Goldberg's office)
Cardiology: Previously Dr. Zabala, last seen 05/24/23 then no-show for 09/03/23 office visit and echo
Impression:
Abdominal pain and possible acute cholecystitis 03/17/24
Acute on chronic combined systolic and diastolic HFrEF
B/L pleural effusions
NICM EF 20-25% by echo 05/13/23
Nonobstructive CAD by cath 05/16/23
h/o polysubstance abuse including meth, cocaine and benzodiazepines
Active smoker
Hypertension
Hepatitis C history untreated
PVCs
Prolonged QTc
Medication NONCOMPLIANCE: She told me today that she has been OFF all medications for 6 months or so
Echo 05/13/23: Mildly dilated LV, severely reduced LV systolic function with EF 20 to 25%, global hypokinesis, significant biatrial enlargement, mild to moderate MR, mild to moderate TR with mild pulmonary hypertension, pulmonary artery pressure 36
mmHg with trivial pericardial effusion.
Echo 03/18/24: EF 20 to 25% with global hypokinesis, stage II diastolic dysfunction, dilated RV with reduced RV systolic function, moderate MR, mild to moderate TR with PAP 45 to 50 mmHg
Plan:
-Presented with abdominal pain and possible acute cholecystitis. Also w/ evidence of acute heart failure exacerbation.
-Diuresing with IV lasix 40mg BID. Weight down 8lbs overnight, 12lbs this admission if accurate. Weight down to 161lbs 03/20.
-Continue to follow daily weights, I&Os. Creat improving with diuresis, down to 1.1 03/20.
-K down to 3.3, replete.
-Echo 03/18 with EF 20-25%, stable compared to prior echo 04/2023.
-Importance of compliance w/ medications and follow up discussed. Will continue Toprol, Entresto, Spironolactone, and Farxiga. All restarted this admission.
-Elevated troponin noted, flat at 0.06, suspect nonischemic myocardial injury in the setting of acute heart failure exacerbation. No chest pain. Nonobstructive CAD by cath less than a year ago.
-Recheck ECG. QTc 497 ms on 03/18/24. Zofran stopped on 03/17/24.
-GI feels that elevated LFTs may be related to passive congestion. Continue to follow. No current plan for surgery.
HPI: Patient came to [facility] today with 3 days worth of abdominal pain and was found to have acute cholecystitis and cardiology has been asked to evaluate for preoperative risk stratification due to h/o NICM. Patient previously admitted to 04/2023 in
the setting of acute HF. Patient was found to have a newly reduced EF at 20-25% and subsequent cath showed nonobstructive CAD. Patient was managed as a nonischemic cardiomyopathy and was started on GDMT including Entresto 24/26 mg BID, Farxiga 10 mg
daily, Lasix 40 mg daily, Toprol XL 25 mg daily and spironolactone 12.5 mg daily. Patient was seen in the cardiology office once after that admission, on 05/24/23, and her Toprol XL was decreased to 25 mg daily. Patient was scheduled for a follow up
echo and office visit 09/03/23 and was a no-show. Patient now comes to [facility] with abdominal pain and is being admitted with acute cholecystitis. On abdominal MRI there was evidence of pleural effusions and acute interstitial cardiogenic pulmonary
edema. No chest pain. No SOB. She says she is taking all meds as previously prescribed although her med list has Toprol XL at 50 mg daily instead of the lower dose that was ordered at last office visit. Still smoking. Says she is not using any drugs.
Progress Note - [employer]
Subjective
Date of Service: March 20, 2024
Breathing improving, however still SOB.
Objective
Labs:
03/20/24 06:49
03/20/24 06:49
Labs
Hgb 12.5 g/dL (12.0-16.0) 03/20/24 06:49
Hct 37.5 % (37.0-47.0) 03/20/24 06:49
Plt Count 209 10^3/uL (130-400) 03/20/24 06:49
PT 16.5 Sec (11.4-14.6) H 03/18/24 10:12
INR 1.32 03/18/24 10:12
Sodium 136 mmol/L (135-145) 03/20/24 06:49
Potassium 3.3 mmol/L (3.5-5.1) L 03/20/24 06:49
BUN 21 mg/dl (7-17) H 03/20/24 06:49
Creatinine 1.1 mg/dL (0.6-1.0) H 03/20/24 06:49
Glucose 119 mg/dl (70-99) H 03/20/24 06:49
Troponins
03/17/24 03/17/24 03/18/24
09:25 20:09 05:51
Troponin I 0.041 H* 0.059 H* Cancelled
03/18/24
06:41
Troponin I 0.060 H*
Vital Signs and I&O:
Vital Signs
Temp Pulse Resp BP Pulse Ox
98.3 F 63 18 159/85 94
03/20/24 07:24 03/20/24 08:50 03/20/24 07:24 03/20/24 08:50 03/20/24 07:24
Vital Signs
Temp Pulse Resp BP Pulse Ox
98.3 F 63 18 159/85 94
03/20/24 07:24 03/20/24 08:50 03/20/24 07:24 03/20/24 08:50 03/20/24 07:24
Intake & Output
03/18/24 03/19/24 03/20/24 03/21/24
06:59 06:59 06:59 06:59
Intake Total 160 / 160 960 / 960 660 / 660
Output Total 1300 / 1300 200 / 200
Balance -1140 / -1140 760 / 760 660 / 660
Physical Exam
Physical Exam
GEN: NAD, AAOx3
HEENT: MMM
LUNGS: No audible wheeze
CV: Reg, 1/6 syst murmur
EXT: No clubbing, cyanosis, or edema B/L LE
NEURO: Gross non-focal
SKIN: Warm, dry, no rash
[2024-03-20] MEDS: ROXICODONE 5 MG PO ×2 (12:20→19:34)
[2024-03-20] MEDS: KCL 40 MEQ PO (12:20)
--- NOTE | 2024-03-20 13:05 | PTCARENOTE ---
as per Dr Bob, pt to remain on tele until evaluated by cardiology.
--- NOTE | 2024-03-20 15:08 | W.PN.HOSP.TC ---
Today's Communication/Plan
-
CW IV diuresis and TX for CM
Follow LFTS
DC antibiotics
Assessment / Plan
Assessment / Plan
Acute abdominal pain with radiological concern for acute cholecystitis.MRI with MRCP of abdomen - no cholelithiasis but there is a biliary sludge in the gallbladder. Gallbladder wall is thickened as well. It also shows dilatation of the common
hepatic duct but not of CBD-Unclear etiology for this. LFTs are normal including lipase on admission but now raising transaminitis. HIDA neg. Surgery /GI following.DC further empirical ceftriaxone and Flagyl as HIDA neg and less likely
cholecystitis ;findings of GB may be sec to passive congestion and secondary reactive inflammation .cw antiemetics and pain regimen.
Follow surgery recs from today.
Acute CHF decompensation-patient tells me she had some shortness of breath with wheezing prior to coming into the hospital. She was noted to have acute pulmonary edema on the MRI of the abdomen , the chest x-ray also shows vascular congestion. BNP
is up. Improved weight close to baseline from last year. cw IV Lasix per cards
Echocardiogram on this admission shows still severely reduced EF of 20 to 25% and stage II diastolic dysfunction. Dilated right ventricle with reduced right systolic function noted; moderate MR noted. Pulmonary arterial pressure 45-50 mmHg.
Cardiology following. Patient has been noncompliant with follow-ups with cardiology.
urine drug screen shows positivity for Methaamphetamine and Marijuana; narcotics could be sec to pain meds;patient denies any use since last discharge.
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 She had a cardiac catheterization last year without any obstruction. Continue with her home regimen.
Troponin elevation-suspect nonischemic myocardial injury
Hypertension-continue the home medications and follow-up.
.
Anticipated Discharge: 24 - 48 hours
Subjective/Interval History
-
Date of Service: March 20, 2024
patient today saying that her abdominal pain is improving. Still on clear liquids which she seem to tolerate ;feels nauseous at times.
No fever or chills.
Objective Data
-
Labs:
Laboratory Results
03/20/24
06:49
WBC 8.4
Hgb 12.5
Hct 37.5
Plt Count 209
Sodium 136
Potassium 3.3 L
Chloride 100
Carbon Dioxide 26
BUN 21 H
Creatinine 1.1 H
Glucose 119 H
Calcium 8.7
Total Bilirubin 1.0
AST 570 H*
ALT 475 H
Alkaline Phosphatase 77
Vital Signs:
Vital Signs
Temp Pulse Resp BP Pulse Ox
98.3 F 65 15 143/70 95
03/20/24 11:39 03/20/24 11:39 03/20/24 11:39 03/20/24 11:39 03/20/24 11:39
I&O
03/19/24 03/20/24 03/21/24
06:59 06:59 06:59
Intake Total 960 / 960 660 / 660
Output Total 200 / 200
Balance 760 / 760 660 / 660
Review of Systems
-
Respiratory: Denies Trouble Breathing
Cardiac: Denies Chest Pain
Neuro: Denies Dizzy
Physical Exam
-
General: No Apparent Distress
HEENT: Moist Mucous Membranes
Respiratory: Clear to Auscultation
Cardiac: Regular Rhythm and S1/S2
GI: Soft, Nondistended and Normal Bowel Sounds; Negative Tender (epigastric/RUQ discomfort )
Neuro: AO x 3; Negative Tremors
Data Reviewed
-
Labs: Labs Reviewed by me
--- NOTE | 2024-03-20 15:28 | CM ---
Chart reviewed and home when stable, no needs.
Plan; Home no needs when stable.
[2024-03-20] MEDS: LOVENOX 40 MG SC (17:07)
[2024-03-20] MEDS: REMERON 15 MG PO (20:55)
[2024-03-21 03:00] VITALS: BP 136/77
[2024-03-21 06:00] VITALS: BMI 27.2
[2024-03-21 07:00] VITALS: BP 133/70
[2024-03-21 07:43] LABS: ALT (SGPT) 306 U/L (0-35); AST (SGOT) 182 U/L (14-36); Albumin 3.6 g/dl (3.5-5.0); Alkaline Phosphatase 72 U/L (38-126); Blood Urea Nitrogen 22 mg/dl (7-17); Calcium 8.7 mg/dl (8.4-10.2); Carbon Dioxide 27 mmol/L (22-30); Chloride 99 mmol/L (98-107); Estimated Creatinine Clearance 61 ml/min; Glucose 126 mg/dl (70-99); Potassium 3.3 mmol/L (3.5-5.1); Sodium 137 mmol/L (135-145); Total Bilirubin 0.7 mg/dl (0.2-1.3); Total Protein 6.7 g/dl (6.3-8.2); eGFR > 60.00
[2024-03-21] MEDS: ENTRESTO 24 MG/26 MG 1 TAB PO (08:56)
[2024-03-21] MEDS: LOW STRENGTH ASPIRIN 81 MG PO (08:56)
[2024-03-21] MEDS: LASIX 40 MG IV (08:57)
[2024-03-21] MEDS: ALDACTONE 12.5 MG PO (08:57)
[2024-03-21] MEDS: FARXIGA 10 MG PO (08:57)
[2024-03-21] MEDS: TOPROL XL 50 MG PO (08:57)
--- NOTE | 2024-03-21 09:38 | W.PN.HOSP.TC ---
Today's Communication/Plan
-
DC planning
Assessment / Plan
Assessment / Plan
Acute abdominal pain with radiological concern for acute cholecystitis.MRI with MRCP of abdomen - no cholelithiasis but there is a biliary sludge in the gallbladder. Gallbladder wall is thickened as well. It also shows dilatation of the common
hepatic duct but not of CBD-Unclear etiology for this. LFTs are normal including lipase on admission but now raising transaminitis. HIDA neg. Surgery /GI following.DC further empirical ceftriaxone and Flagyl as HIDA neg and less likely
cholecystitis ;findings of GB may be sec to passive congestion and secondary reactive inflammation .
Improving LFTs and clinical symptoms.
Tolerating diet . Afebrile.
No surgical indication for cholecystectomy
Follow with GI as OP for hep c and pancreatic cyst
Acute CHF decompensation-patient tells me she had some shortness of breath with wheezing prior to coming into the hospital. She was noted to have acute pulmonary edema on the MRI of the abdomen , the chest x-ray also shows vascular congestion. BNP
is up. Improved weight close to baseline from last year. cw IV Lasix per cards
Echocardiogram on this admission shows still severely reduced EF of 20 to 25% and stage II diastolic dysfunction. Dilated right ventricle with reduced right systolic function noted; moderate MR noted. Pulmonary arterial pressure 45-50 mmHg.
Cardiology following. Patient has been noncompliant with follow-ups with cardiology.
urine drug screen shows positivity for Methaamphetamine and Marijuana; narcotics could be sec to pain meds;patient denies any use since last discharge.Advised on ill effects of methamphetamines on heart .
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 She had a cardiac catheterization last year without any obstruction. Continue with her home regimen.
Troponin elevation-suspect nonischemic myocardial injury
Hypertension-continue the home medications and follow-up.
If ok from GI and Cards standpoint will dc home
Pt says she has insurance with state and filling prescriptions not a issue.
Will ask CM to look into medications
.
Anticipated Discharge: Today
Subjective/Interval History
-
Date of Service: March 21, 2024
Feeling improved abdominal pain standpoint. Tolerating low-fat diet. No nausea vomiting. No fever.
Denies shortness of breath. Denies any chest pain.
Denies use of methamphetamines.
Objective Data
-
Labs:
Laboratory Results
03/21/24
07:11
Sodium 137
Potassium 3.3 L
Chloride 99
Carbon Dioxide 27
BUN 22 H
Creatinine 1.0
Glucose 126 H
Calcium 8.7
Total Bilirubin 0.7
AST 182 H
ALT 306 H
Alkaline Phosphatase 72
Vital Signs:
Vital Signs
Temp Pulse Resp BP Pulse Ox
98 F 70 16 133/70 93
03/21/24 07:00 03/21/24 07:00 03/21/24 07:00 03/21/24 07:00 03/21/24 07:00
I&O
03/20/24 03/21/24 03/22/24
06:59 06:59 06:59
Intake Total 660 / 660 960 / 960
Balance 660 / 660 960 / 960
Review of Systems
-
Constitutional: Denies Fever
EENT: Denies Sore Throat
Respiratory: Denies Cough
Neuro: Denies Dizzy
Physical Exam
-
General: No Apparent Distress
HEENT: Moist Mucous Membranes
Respiratory: Clear to Auscultation
Cardiac: Regular Rhythm and S1/S2
GI: Soft, Nontender, Nondistended and Normal Bowel Sounds
Neuro: AO x 3
Psych: Calm
Data Reviewed
-
Labs: Labs Reviewed by me
--- NOTE | 2024-03-21 10:22 | W.PN.GI.CBS2 ---
Today's Communication / Plan
-
Please see assessment and plan for details.
Assessment / Plan
-
1. Abdominal pain/elevated LFTs: In the setting of decompensated cardiomyopathy, likely secondary to passive congestion. She is overall much improved, and much improved LFTs. Will plan outpatient workup for chronic hepatitis C.
2. Pancreatic cyst: 2.7 mm, without any alarm features, likely plan repeat MRI in 1 year for surveillance.
She is okay from a GI standpoint for discharge, will set up follow-up in about a month.
Subjective
Subjective
Date of Service: March 21, 2024
Patient feeling better overall, no further abdominal pain, tolerating diet without difficulty, no fever or chills.
Objective
Data Reviewed
Laboratory Data:
Laboratory Results
03/20/24 06:49
03/21/24 07:11
Laboratory Results
PT 16.5 Sec (11.4-14.6) H 03/18/24 10:12
INR 1.32 03/18/24 10:12
Magnesium 2.1 mg/dl (1.6-2.3) 03/17/24 09:25
Total Bilirubin 0.7 mg/dl (0.2-1.3) 03/21/24 07:11
AST 182 U/L (14-36) H 03/21/24 07:11
ALT 306 U/L (0-35) H 03/21/24 07:11
Alkaline Phosphatase 72 U/L (38-126) 03/21/24 07:11
Lipase 107 U/L (23-300) 03/17/24 09:25
Vital Signs and I&O:
Vital Signs
Temp Pulse Resp BP Pulse Ox
98 F 70 16 133/70 93
03/21/24 07:00 03/21/24 07:00 03/21/24 07:00 03/21/24 07:00 03/21/24 07:00
I&O
03/20/24 03/21/24 03/22/24
06:59 06:59 06:59
Intake Total 660 / 660 960 / 960
Balance 660 / 660 960 / 960
Physical Exam
Physical Exam
General: NAD
Abdomen: normal bowel sounds, soft, no tenderness, no masses or bruits, no ascites
--- NOTE | 2024-03-21 10:58 | W.PN.CARDCBS ---
Addendum entered and electronically signed by Fidel Goff MD 03/21/24 11:57:
I saw and examined the patient.
The Real Estate Developer's note was reviewed and I agree with the note.
Comment:
GEN: No distress, awake, Ox3
HEENT: supple, anicteric, mmm
LUNGS: CTA, no wheezes/rales
CV: Reg, S1/S2, 1/6 syst LSB, no gallop
ABD: soft, BS+, NT/ND
EXT: No edema
NEURO: Gross non-focal
SKIN: No rash
Plan:
She has lost 15 pounds and clinically is much improved. Continue Toprol, Entresto, Aldactone, and Farxiga.
Switch to Lasix 40 mg p.o. twice daily.
Okay for discharge today.
I strongly advised her to stop using methamphetamines and stimulants
Original Note:
Today's Communication / Plan
-
Transition to PO lasix
Continue current CM regimen
Follow up will be arranged
OK for discharge
Impression / Plan
-
PCP: Dr. Suzanne Cabrera in [facility] (previously a no-show for Dr. Goldberg's office)
Cardiology: Previously Dr. Zabala, last seen 05/24/23 then no-show for 09/03/23 office visit and echo
Impression:
Abdominal pain and possible acute cholecystitis 03/17/24
Acute on chronic combined systolic and diastolic HFrEF
B/L pleural effusions
NICM EF 20-25% by echo 05/13/23
Nonobstructive CAD by cath 05/16/23
h/o polysubstance abuse including meth, cocaine and benzodiazepines
Active smoker
Hypertension
Hepatitis C history untreated
PVCs
Prolonged QTc
Medication NONCOMPLIANCE: She told me today that she has been OFF all medications for 6 months or so
Echo 05/13/23: Mildly dilated LV, severely reduced LV systolic function with EF 20 to 25%, global hypokinesis, significant biatrial enlargement, mild to moderate MR, mild to moderate TR with mild pulmonary hypertension, pulmonary artery pressure 36
mmHg with trivial pericardial effusion.
Echo 03/18/24: EF 20 to 25% with global hypokinesis, stage II diastolic dysfunction, dilated RV with reduced RV systolic function, moderate MR, mild to moderate TR with PAP 45 to 50 mmHg
Plan:
-Presented with abdominal pain and possible acute cholecystitis. Also w/ evidence of acute heart failure exacerbation.
-Diuresed with IV lasix 40mg BID. Weight down 15 lbs this admission if accurate. Weight down to 158lbs 03/21.
-Creat continues to improve with diuresis.
-Will transition to PO lasix 40mg BID. Check BMP in 1 week.
-K 3.3, will replete.
-Echo 03/18 with EF 20-25%, stable compared to prior echo 04/2023.
-Will continue Toprol, Entresto, Spironolactone, and Farxiga. All restarted this admission.
-Elevated troponin noted, flat at 0.06, suspect nonischemic myocardial injury in the setting of acute heart failure exacerbation. No chest pain. Nonobstructive CAD by cath less than a year ago.
-Recheck ECG. QTc 497 ms on 03/18/24. Zofran stopped on 03/17/24.
-GI feels that elevated LFTs may be related to passive congestion. Continue to follow. No current plan for surgery.
-Follow up will be arranged w/ cardiology. Importance of compliance w/ medications and follow up discussed.
HPI: Patient came to [facility] today with 3 days worth of abdominal pain and was found to have acute cholecystitis and cardiology has been asked to evaluate for preoperative risk stratification due to h/o NICM. Patient previously admitted to 04/2023 in
the setting of acute HF. Patient was found to have a newly reduced EF at 20-25% and subsequent cath showed nonobstructive CAD. Patient was managed as a nonischemic cardiomyopathy and was started on GDMT including Entresto 24/26 mg BID, Farxiga 10 mg
daily, Lasix 40 mg daily, Toprol XL 25 mg daily and spironolactone 12.5 mg daily. Patient was seen in the cardiology office once after that admission, on 05/24/23, and her Toprol XL was decreased to 25 mg daily. Patient was scheduled for a follow up
echo and office visit 09/03/23 and was a no-show. Patient now comes to [facility] with abdominal pain and is being admitted with acute cholecystitis. On abdominal MRI there was evidence of pleural effusions and acute interstitial cardiogenic pulmonary
edema. No chest pain. No SOB. She says she is taking all meds as previously prescribed although her med list has Toprol XL at 50 mg daily instead of the lower dose that was ordered at last office visit. Still smoking. Says she is not using any drugs.
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
Subjective
Date of Service: March 21, 2024
Breathing feels improved. No complaints.
Objective
Labs:
03/20/24 06:49
03/21/24 07:11
Labs
Hgb 12.5 g/dL (12.0-16.0) 03/20/24 06:49
Hct 37.5 % (37.0-47.0) 03/20/24 06:49
Plt Count 209 10^3/uL (130-400) 03/20/24 06:49
PT 16.5 Sec (11.4-14.6) H 03/18/24 10:12
INR 1.32 03/18/24 10:12
Sodium 137 mmol/L (135-145) 03/21/24 07:11
Potassium 3.3 mmol/L (3.5-5.1) L 03/21/24 07:11
BUN 22 mg/dl (7-17) H 03/21/24 07:11
Creatinine 1.0 mg/dL (0.6-1.0) 03/21/24 07:11
Glucose 126 mg/dl (70-99) H 03/21/24 07:11
Vital Signs and I&O:
Vital Signs
Temp Pulse Resp BP Pulse Ox
98 F 70 16 133/70 93
03/21/24 07:00 03/21/24 07:00 03/21/24 07:00 03/21/24 07:00 03/21/24 07:00
Vital Signs
Temp Pulse Resp BP Pulse Ox
98 F 70 16 133/70 93
03/21/24 07:00 03/21/24 07:00 03/21/24 07:00 03/21/24 07:00 03/21/24 07:00
Intake & Output
03/19/24 03/20/24 03/21/24 03/22/24
06:59 06:59 06:59 06:59
Intake Total 960 / 960 660 / 660 960 / 960
Output Total 200 / 200
Balance 760 / 760 660 / 660 960 / 960
Physical Exam
Physical Exam
GEN: NAD, AAOx3
HEENT: MMM
LUNGS: No audible wheeze
CV: Reg, 1/6 syst murmur
EXT: No clubbing, cyanosis, or edema B/L LE
NEURO: Gross non-focal
SKIN: Warm, dry, no rash
[2024-03-21 11:00] VITALS: BP 134/80
[2024-03-21] MEDS: KCL 40 MEQ PO (11:38)
--- NOTE | 2024-03-21 13:54 | W.DS.TRANS ---
DC Summary - Etl Analyst
-
Discharge Instructions:
Discharge Diagnosis/Procedures Acute CHF decompensaton ;CM with persistent low
EF
Diet Low Cholesterol
Activity As tolerated
Driving Restrictions As prior to admission
Blood Work CMP blood work in one week -obtain through your
PCP
Specialty Instructions Weigh Daily
Instructions:
Stand-Alone Forms:
Changes to Home Medications: Yes
Discharge Medications:
DC Medications w/original date entered in [facility]
aspirin 81 mg chewable tablet 81 mg PO DAILY Blood Clot Prevention/Tx 03/17/24
dapagliflozin propanediol 10 mg tablet (Farxiga) 10 mg PO DAILY Heart Failure 03/17/24
metoprolol succinate 50 mg tablet,extended release 24 hr 50 mg PO DAILY Heart Failure 03/17/24
mirtazapine 15 mg tablet 15 mg PO [facility] 03/17/24
sacubitril 24 mg-valsartan 26 mg tablet (Entresto) 1 tab PO BID Heart Failure 03/17/24
spironolactone 25 mg tablet 12.5 mg PO DAILY Heart Failure 03/17/24
furosemide 40 mg tablet 40 mg PO BID Fluid Retention/Swelling #60 tabs 03/21/24
Home Medication Changes
Continue medication-Lasix dose increased
Pending Results: No
--- NOTE | 2024-03-21 14:30 | CM ---
Patient with Dx Acute abdominal pain with radiological concern for acute cholecystitis, CHF, urine drug screen shows positivity for Methamphetamine and Marijuana. Room air.
CM Consult: Hale check Farxiga & Entresto
Spoke with pharmacist, EDUARDA, Lucie Nj;
Entresto is covered 100% (no copay) however Farxiga is not covered under her plan.
Information relayed to the patient who agrees with Entresto but not Farxiga due to cost---> Dr Bob made aware.
The patient says she feels ready to go home today. A friend will provide transport home.
Plan home today.
[2024-03-21 15:50] VITALS: BP 130/82
--- NOTE | 2024-03-21 16:37 | W.DCSUMMARY ---
Discharge Summary
Discharge Data
Date of Admission: 03/17/24
Date of Discharge: 03/21/24
-
Pending Results: No
Hospital Course
Primary diagnosis:
Acute decompensated CHF with reduced EF
Nonischemic cardiomyopathy
Gallbladder wall thickening which was felt secondary to reactive from congestion
Abnormal LFTs suspected secondary to hepatic congestion
History of substance abuse
Noncompliance
Secondary diagnosis:
essential hypertension
Hospital course:
patient with history of nonischemic cardiomyopathy and a prior acute CHF decompensation presented with shortness of breath and abdominal pain. She was lost to follow-up. She did not take any of her cardiac medication. Did not follow-up with
cardiology.
With regards abdominal pain she was also tender in the abdomen. She initially had an MRI abdomen with showed no cholelithiasis but there was a biliary sludge. Gallbladder was thickened. There are some dilatation of common hepatic duct with no
dilation of CBD or intrahepatic duct. LFTs were normal including lipase on admission.No cholestasis. It was not clear-cut if she had any cholecystitis so HIDA scan was obtained which showed patency of cystic duct and common bile duct. General
surgery thought maybe the gallbladder was thick as a reaction to her congestion from heart failure.
She no elevated transaminitis but during the hospital stay with decompensated CHF she had elevation of LFTs which were improving with improving and weight and heart failure. GI felt and no indication for EUS. She had a pancreatic cyst noted on
the MR imaging. She also has a history of hepatitis C. GI advised follow-up as an outpatient.
She was in decompensated CHF. She had an echo which showed EF of 20 to 25% still in stage II diastolic dysfunction. Patient was put on IV diuresis with significant weight loss and resolution of shortness of breath.
Urine drug screen came back positive for methamphetamines which she denies. She also uses marijuana. Stressed about the importance of staying away from any kind of substance abuse and also being very compliant with her goal-directed medical
therapy for cardiomyopathy from heart failure and cardiology follow up for improved outcomes.
Consultants on board:
GI-Daniel Garcia
General surgery-Mat Francis
Cardiology-Yimi Medrano
Discharge Plan
-
Patient Disposition: Home (Routine Discharge)
Discharge Diagnosis/Procedures: Acute CHF decompensaton ;CM with persistent low EF
Diet: Low Cholesterol
Activity: As tolerated
Driving Restrictions: As prior to admission
Blood Work: CMP blood work in one week -obtain through your PCP
Specialty Instructions: Weigh Daily- Call MD for wt gain/loss 3 lbs overnight/5 lbs in 1 week
Referrals:
Yimi Zabala MD [Active] - in less than 1 week (The cardiology office will call you to arrange a follow up visit. )
Stefany Benavides MD [Active] - in one month (call for an appointment)
Suzanne Cabrera DO [Family Provider] - in less than 1 week
Prescriptions:
New
potassium chloride 20 mEq tablet extended release
20 meq PO DAILY Qty: 30 0RF
Continued
metoprolol succinate 50 mg tablet extended release 24 hr
50 mg PO DAILY Qty: 30 0RF
spironolactone 25 mg tablet
12.5 mg PO DAILY Qty: 30 0RF
aspirin 81 mg tablet,chewable
81 mg PO DAILY Qty: 30 0RF
mirtazapine 15 mg tablet
15 mg PO HS Qty: 30 0RF
dapagliflozin propanediol [Farxiga] 10 mg tablet
10 mg PO DAILY Qty: 30 0RF
Entresto 24-26 mg tablet
1 tab PO BID Qty: 30 0RF
Changed
furosemide 40 mg tablet
40 mg PO BID Qty: 60 0RF
Discharge Orders:
Discharge Patient (As Directed); Ordered 03/21/24
Ordered By: Rigoberto Bob
Discharge Date and Time
Discharge Date/Time: 03/21/24 15:51
Print Language: DANISH
== END 2024-03-21 15:51 | disposition home or self-care (01) | DRG 291 ==
LOC: 4 WEST ACU 14:21
PROVIDERS: Nurse Practitioner Adult Health; Physician Assistant; Surgery; ADMITTING PHYSICIAN Internal Medicine; CONSULT PHYSICIAN Internal Medicine Cardiovascular Disease; CONSULT PHYSICIAN Internal Medicine Gastroenterology; CONSULT PHYSICIAN Surgery; EMERGENCY PHYSICIAN Emergency Medicine; FAMILY PHYSICIAN Family Medicine
DX: I11.0 Hypertensive heart disease with heart failure (principal); I50.23 Acute on chronic systolic (congestive) heart failure; I31.39 Other pericardial effusion (noninflammatory); K86.2 Cyst of pancreas; J90 Pleural effusion, not elsewhere classified; I42.7 Cardiomyopathy due to drug and external agent; I5A Non-ischemic myocardial injury (non-traumatic); I25.10 Atherosclerotic heart disease of native coronary artery without angina pectoris; I49.3 Ventricular premature depolarization; B18.2 Chronic viral hepatitis C; F14.10 Cocaine abuse, uncomplicated; F15.10 Other stimulant abuse, uncomplicated; N28.9 Disorder of kidney and ureter, unspecified; K76.1 Chronic passive congestion of liver; I27.20 Pulmonary hypertension, unspecified; F13.10 Sedative, hypnotic or anxiolytic abuse, uncomplicated; F19.10 Other psychoactive substance abuse, uncomplicated; F17.200 Nicotine dependence, unspecified, uncomplicated; R10.13 Epigastric pain; Z79.82 Long term (current) use of aspirin; Z88.8 Allergy status to other drugs, medicaments and biological substances; Z91.199 Patient's noncompliance with other medical treatment and regimen due to unspecified reason; Z80.51 Family history of malignant neoplasm of kidney; Z98.82 Breast implant status; Z91.148 Patient's other noncompliance with medication regimen for other reason
CPT/HCPCS: 71046; 74177; 74181; 78226; 80053; 80306; 80307; 81003; 81015; 83690; 83735; 83880; 84484; 85025; 85027; 85610; 87040; 87077; 87086; 87186; 93005; 93306; 96365; 96375; 99285; 99406; A9537; Q9967

== ENCOUNTER 2025-06-11 19:55 | Emergency (ER) | payer OTHER, SELFPAY ==
[2025-06-11 20:16] VITALS: BP 192/99
[2025-06-11 20:27] VITALS: BMI 24.9
[2025-06-11 21:21] VITALS: BP 192/117
[2025-06-11 22:00] VITALS: BP 180/96
[2025-06-11 22:06] LABS: Hematocrit 34.5 % (37.0-47.0); Hemoglobin 11.8 g/dL (12.0-16.0); Mean Corp Hgb Conc. 34.2 g/dL (33.0-37.0); Mean Corpuscular Volume 85.8 fL (81.0-99.0); Nucleated Red Blood Cells % 0 %; Platelet Count 264 10^3/uL (130-400); Red Cell Dist. Width 12.9 % (11.5-14.5)
[2025-06-11 22:16] LABS: INR 1.03; PT 13.8 Sec (11.4-14.6)
[2025-06-11 22:24] LABS: ALT (SGPT) 31 U/L (0-35); AST (SGOT) 32 U/L (14-36); Albumin 3.9 g/dl (3.5-5.0); Alkaline Phosphatase 70 U/L (38-126); Blood Urea Nitrogen 14 mg/dl (7-17); Calcium 8.9 mg/dl (8.4-10.2); Carbon Dioxide 23 mmol/L (22-30); Chloride 108 mmol/L (98-107); Estimated Creatinine Clearance 67 ml/min; Glucose 91 mg/dl (70-99); Potassium 3.4 mmol/L (3.5-5.1); Sodium 137 mmol/L (135-145); Total Protein 6.8 g/dl (6.3-8.2); eGFR > 60.00
--- NOTE | 2025-06-11 22:28 | ED.GENMED ---
History of Present Illness
General
Chief Complaint: Chest Pain
Time Seen by Provider: 06/11/25 22:27
History of Present Illness
History of Present Illness:
PAST MEDICAL HISTORY AND REVIEW OF OLD RECORDS
- Congestive heart failure, high blood pressure. I reviewed records, the patient was admitted here in March 2024 with acute decompensated CHF with reduced EF. At that time she had an EF of 20 to 25%.
Note:
CHIEF COMPLAINT(S)
Elevated blood pressure.
HISTORY OF PRESENT ILLNESS
The patient is a 59-year-old female with a history of heart failure who presented to the emergency department with concerns of elevated blood pressure. Approximately one week ago, she was discharged from [facility] following treatment for
heart failure. Since her discharge, it is unclear if her current medication regimen matches the recommendations from [facility], as she does not have paperwork with details. The patient mentioned that her family doctor prescribed her additional
medication two days prior to todays visit.
Today, law enforcement measured her blood pressure at intake (was under arrest due to domestic disturbance warrant), and it was recorded as 204/unknown diastolic number, prompting her transport to the ER. Since her discharge from [facility], she has
only taken lisinopril and metoprolol yesterday. She does not recall the dosage of metoprolol but mentioned that she also takes hydrochlorothiazide. The patient has not yet taken any blood pressure medications today. Her elevated readings have been
attributed to an inability to access medication due to the lack of transportation, as her mobility is limited by the absence of personal transportation.
ADDITIONAL HISTORY OBTAINED FROM SOURCES OTHER THAN THE PATIENT
The patient reported that her arrest and subsequent blood pressure check occurred at 7 oclock this morning during an unrelated incident which led to her facing challenges in accessing her regular medications.
CHRONIC MEDICAL CONDITIONS SIGNIFICANTLY AFFECTING CARE
- Heart failure.
MEDICATION LIST
Jardiance 10mg
Lasix 20mg qd
Toprol 50mg qd
Losartan 25mg qd
Zoloft 25mg qd
Lipitor 40mg qd
SOCIAL DETERMINANTS AFFECTING HEALTH
The patient reported difficulties in accessing healthcare due to a lack of transportation, which has prevented her from obtaining her prescribed medications.
SOCIAL HISTORY
The patient currently does not have transportation, which impacts her healthcare access.
PHYSICAL EXAM
General: Alert, no acute distress.
Skin: Warm, dry.
Head: Normocephalic, atraumatic.
Neck: Supple, trachea midline.
Eye Ears, Nose, Mouth, and Throat: Oral mucosa moist.
Cardiovascular: Normal peripheral perfusion, No edema.
Respiratory: Respirations are non-labored.
Gastrointestinal: Abdomen nondistended
Back: Normal range of motion, Normal alignment.
Musculoskeletal: Normal range of motion, normal strength.
Neurological: Alert and oriented to person, place, time, and situation, No focal neurological deficit observed.
Psychiatric: Cooperative, appropriate mood and affect.
PROBLEM LIST
Acute Problems:
- Elevated blood pressure.
- Medication non-compliance due to accessibility issues.
Chronic Problems:
- Heart failure.
PLAN
1. Attempt to contact [facility] for detailed discharge medication instructions.
2. Consider restarting previously known medications: lisinopril, metoprolol, and hydrochlorothiazide.
3. Explore potential solutions to tackle transportation barriers to ensure better medication adherence and consistent follow-ups.
DIFFERENTIAL DIAGNOSIS
The differential diagnosis includes, in no particular order and is not limited to:
1. Uncontrolled hypertension.
2. Medication non-compliance.
3. Heart failure exacerbation.
4. Stress-induced hypertension.
5. Secondary hypertension.
6. Renal artery stenosis.
7. Aortic coarctation.
8. Hyperaldosteronism.
9. Pheochromocytoma.
10. Cushings syndrome.
EKG
- Sinus 70, LVH with associated repolarization abnormality
LABS
- Hemoglobin 11.8, potassium 3.4, BNP 3270, troponin 0.021
UPDATE
-SUMMARY OF ENCOUNTER
The patient, a 59-year-old female with a history of heart failure, was seen in the emergency department due to elevated blood pressure (204/unknown diastolic). She was previously discharged from [facility] after heart failure treatment but
faced medication non-compliance due to transportation issues. The law enforcement intervention led to this ED visit. Management involved administering her usual medications and ensuring continuity of care after discharge.
MEDICATION RECONCILIATION
- Gave furosemide (Lasix) during the visit.
- Patient usually takes lisinopril, metoprolol, hydrochlorothiazide.
MEDICAL DECISION MAKING
- Number and Complexity of Problems Addressed: Chronic conditions affecting care: Heart failure.
- Differential Diagnosis: Uncontrolled hypertension, Medication non-compliance, Heart failure exacerbation, Stress-induced hypertension, Secondary hypertension, Renal artery stenosis, Aortic coarctation, Hyperaldosteronism, Pheochromocytoma,
Cushings syndrome.
Category 1
- External records reviewed from [facility] regarding medication regimen.
- Clinical information obtained from law enforcement intervention details.
Category 3
- Discussion of management with group home facility regarding medication continuity.
-Risk: Prescription drug management is necessary. Care significantly affected by Social Determinants of Health due to transportation issues preventing medication access.
DIAGNOSIS
- Uncontrolled Hypertension (I10)
- Heart Failure (I50.9)
- Medication Non-compliance (Z91.120)
I did give paper prescriptions for her medications to please officers
Phy Exam
Physical Exam
Physical Exam:
See HPI
Scores
Heart Score for Chest Pain Patients
STEMI patient?: Not applicable
Course
Orders/Labs/Results
Orders:
Orders
06/11/25 20:11
Electrocardiogram (*1) Urgent
Reason for Study: Chest Pain
EKG- Treatment ONCE
O2 Therapy [RESP] Urgent
Titrate/Wean O2 to maintain O2 sat greater than (%): 90
Special Instructions: Maintain sats >/=90%
06/11/25 21:56
Complete Blood Count/With Diff Urgent
Comprehensive Metabolic Panel Urgent
NT-proBNP Urgent
Prothrombin Time Urgent
Troponin I Urgent
06/11/25 22:40
Hydrochlorothiazide [Oretic] 25 mg PO NOW STA
Losartan [Cozaar] 50 mg PO NOW STA
Metoprolol Xl [Toprol Xl] 50 mg PO NOW STA
06/11/25 23:30
Furosemide [Lasix] 20 mg PO NOW STA
06/11/25 23:31
Potassium Chloride Powder [Klor-Con] 40 meq PO NOW STA
Abnormal Lab Results
06/11/25
21:56
RBC 4.02 L 10^6/uL
(4.20-5.40)
Hgb 11.8 L g/dL
(12.0-16.0)
Hct 34.5 L %
(37.0-47.0)
MPV 10.9 H fL
(7.4-10.4)
Absolute Lymphs (auto) 3.5 H 10^3/uL
(1.2-3.4)
Absolute Monos (auto) 0.7 H 10^3/uL
(0.1-0.6)
Potassium 3.4 L mmol/L
(3.5-5.1)
Chloride 108 H mmol/L
(98-107)
06/11/25 21:56
06/11/25 21:56
Vital Signs
Initial and Last Documented VS:
Initial Vital Signs
Pulse Resp BP Pulse Ox
97 18 192/99 97
06/11/25 20:16 06/11/25 20:16 06/11/25 20:16 06/11/25 20:16
Last Documented Vital Signs
Pulse Resp BP Pulse Ox
100 15 188/95 97
06/11/25 23:40 06/11/25 22:00 06/11/25 23:40 06/11/25 22:29
*Pulse Oximetry
SaO2: 97
Oxygen Mode of Delivery: Room air
Patient hypoxic: no
*Critical Care Note
Total Time (30-74mins, 75-104mins- exclusive of procedures): Not Applicable
ED Attending Note
-
Portions of this chart may have been created with voice recognition software.� Occasional wrong word or��sound alike� substitutions may have occurred due to the inherent limitations of voice recognition software.
Discharge Plan
Departure
Patient Disposition: Retirement
Date of Disposition: 06/12/25
Time of Disposition: 00:09
Patient with high blood pressure during this ER visit?: Yes
Discharge Problem:
High blood pressure
Prescriptions:
New
furosemide [Lasix] 20 mg tablet
20 mg PO DAILY Qty: 30 0RF
atorvastatin [Lipitor] 40 mg tablet
40 mg PO DAILY Qty: 30 0RF
metoprolol succinate [Toprol XL] 50 mg tablet extended release 24 hr
50 mg PO DAILY Qty: 30 0RF
losartan 25 mg tablet
25 mg PO DAILY Qty: 30 0RF
sertraline [Zoloft] 25 mg tablet
25 mg PO DAILY Qty: 30 0RF
sertraline [Zoloft] 25 mg tablet
25 mg PO DAILY Qty: 30 0RF
aspirin 81 mg tablet
81 mg PO DAILY Qty: 30 0RF
Jardiance 10 mg tablet
10 mg PO DAILY Qty: 30 0RF
No Action
furosemide 40 mg tablet
40 mg PO BID Qty: 60 0RF
potassium chloride 20 mEq tablet extended release
20 meq PO DAILY Qty: 30 0RF
metoprolol succinate 50 mg tablet extended release 24 hr
50 mg PO DAILY Qty: 30 0RF
spironolactone 25 mg tablet
12.5 mg PO DAILY Qty: 30 0RF
aspirin 81 mg tablet,chewable
81 mg PO DAILY Qty: 30 0RF
mirtazapine 15 mg tablet
15 mg PO HS Qty: 30 0RF
dapagliflozin propanediol [Farxiga] 10 mg tablet
10 mg PO DAILY Qty: 30 0RF
Entresto 24-26 mg tablet
1 tab PO BID Qty: 30 0RF
Referrals:
Suzanne Cabrera DO [Family Provider, Family Practice]
Activity Restrictions/Additional Instructions:
I feel patient is medically cleared for incarceration. I reviewed medication list and is important for you to continue your medications.
Interventions
Interventions:
*Risk Screen - Suicide Last Done: 06/11/25 20:30
*General Assessment Last Done: 06/11/25 20:30
*Neglect/Abuse Screening Last Done: 06/11/25 20:30
*ED- Fall Risk Assessment Last Done: 06/11/25 20:30
*ED COVID-19 Vaccine History Last Done: 06/11/25 20:30
ED- Cardiac Assessment Last Done: 06/11/25 20:50
Discharge Date and Time
Print Language: LITHUANIAN
[2025-06-11 22:35] LABS: Troponin I 0.021 ng/ml
[2025-06-11] MEDS: COZAAR 50 MG PO (23:38)
[2025-06-11 23:40] VITALS: BP 173/83
[2025-06-11] MEDS: KLOR-CON 40 MEQ PO (23:40)
[2025-06-11] MEDS: LASIX 20 MG PO (23:40)
[2025-06-11] MEDS: TOPROL XL 50 MG PO (23:40)
[2025-06-12] VITALS: BP 183/108
[2025-06-12 00:28] VITALS: BP 176/87
== END 2025-06-12 00:40 ==
LOC: EMR 19:55
PROVIDERS: Family Medicine; EMERGENCY PHYSICIAN Emergency Medicine; FAMILY PHYSICIAN Family Medicine
DX: I11.0 Hypertensive heart disease with heart failure (principal); I50.9 Heart failure, unspecified; Z79.899 Other long term (current) drug therapy; Z59.82 Transportation insecurity; Z91.148 Patient's other noncompliance with medication regimen for other reason; Z65.3 Problems related to other legal circumstances
CPT/HCPCS: 99284; 80053; 83880; 84484; 85025; 85610; 93005

== ENCOUNTER 2025-06-16 12:50 | Emergency (ER) | payer OTHER, SELFPAY ==
[2025-06-16 12:54] VITALS: BMI 29.3
[2025-06-16 13:01] VITALS: BP 165/82
[2025-06-16 13:03] VITALS: BP 165/82
--- NOTE | 2025-06-16 13:03 | ED.GENMED ---
History of Present Illness
General
Chief Complaint: Chest Pain
Time Seen by Provider: 06/16/25 13:01
History of Present Illness
History of Present Illness:
PAST MEDICAL HISTORY AND REVIEW OF OLD RECORDS
- Patient comes in from [facility] complaining of chest pain. I saw this patient 5 days ago. At that time there was concern for elevated blood pressure readings. Prior to the last ED visit she was seen at [facility] and
medication list included Jardiance, Lasix, Toprol, losartan, Zoloft, and Lipitor. She was admitted here with decompensated heart failure in March 2024 and at that time had an EF of 20 to 25%.
Note:
CHIEF COMPLAINT(S)
Chest pain.
HISTORY OF PRESENT ILLNESS
The patient is a 59-year-old female presenting with chest pain. She reports that the chest discomfort began at approximately 2:00 AM this morning. Initially, the pain was intermittent but became persistent at around 4:00 AM. The patient describes
the chest pain as a sharp sensation, which was not present during her previous visit, where she primarily experienced breathing difficulties. The pain is reproducible upon palpation of the chest, suggesting a non-cardiac origin. An electrocardiogram
does not show any changes indicative of an active myocardial infarction, but cardiac blood work has been ordered to rule out further cardiac issues. The patients ejection fraction has been notably low in past assessments, and she has been managed as
a heart failure patient. She is currently an outpatient under the care of [facility].
ADDITIONAL HISTORY OBTAINED FROM SOURCES OTHER THAN THE PATIENT
EMS initiated care upon her initial presentation but did not provide additional interventions relevant to this visit.
EXTERNAL RECORDS REVIEWED
Records from [facility] were reviewed, indicating the patient had previous management for heart failure and prescribed medications that have been continued.
CHRONIC MEDICAL CONDITIONS SIGNIFICANTLY AFFECTING CARE
Heart failure with a history of low ejection fraction.
PHYSICAL EXAM
General: Alert, But appears somewhat uncomfortable at times
Skin: Warm, dry.
Head: Normocephalic, atraumatic.
Neck: Supple, trachea midline.
Eye, Ears, Nose, Mouth, and Throat: Oral mucosa moist.
Cardiovascular: Normal peripheral perfusion. No edema.There is moderate chest wall tenderness to the lower anterior chest wall in the midline
Respiratory: Respirations are non-labored.
Gastrointestinal: Abdomen nondistended.
Back: Normal range of motion, Normal alignment.
Musculoskeletal: Normal ROM, normal strength.
Neurological: Alert and oriented to person, place, time, and situation. No focal neurological deficit observed.
Psychiatric: Cooperative, appropriate mood & affect.
PROBLEM LIST
Acute: Chest pain.
Chronic: Heart failure with reduced ejection fraction.
PLAN
1. Order cardiac blood work to assess for potential cardiac causes of chest pain.
2. Administer Toradol, a non-narcotic anti-inflammatory medication, for pain management.
3. Perform a chest X-ray to evaluate respiratory status and exclude other causes of chest pain.
4. Review patients past records further to assess the continuity of care and adjust management accordingly.
DIFFERENTIAL DIAGNOSIS
The Differential Diagnosis includes, in no particular order and is not limited to:
1. Musculoskeletal chest pain
2. Myocardial infarction
3. Angina
4. Costochondritis
5. Pulmonary embolism
6. Pneumothorax
7. Gastroesophageal reflux disease
8. Aortic dissection
9. Pericarditis
10. Heart failure exacerbation.
RADIOLOGY
-
EKG
- Sinus 57, borderline LVH, minimal ST elevation in V1 V2 similar to the EKG from 5 days ago
LABS
- Troponin 0.019 which is slightly lower than when I saw her 5 days ago at 0.021; BNP 3060 which is slightly lower than 5 days ago and was 3270. Of note in 2023 it was nearly 19,000.
SUMMARY OF ENCOUNTER
The patient, a 59-year-old female with a history of heart failure, presented to the emergency department with chest pain that started scanner operator. The pain was reproducible upon palpation suggesting a non-cardiac origin. An initial
electrocardiogram did not indicate an active myocardial infarction. Cardiac blood work was performed and returned unchanged from previous measurements. Toradol (ketorolac) was administered for pain management, which helped reduce the pain. A repeat
of cardiac blood work was planned for about one hour later to ensure there were no further changes. Following a negative result, plans were made for the patient to be discharged with instructions to follow up with her lead technical architect.
DISPOSITION
Discharge.
EMERGENCY TREATMENTS ADMINISTERED
Toradol (ketorolac) was administered for pain management.
PLAN
Repeat cardiac blood work in about one hour. Upon negative results, discharge the patient with instructions to follow up with her lead technical architect at [facility] within two weeks as already scheduled.
PATIENT EDUCATION AND COUNSELING
The patient was advised on the importance of following up with her lead technical architect in two weeks as planned. Relevant information regarding the current visit and treatment was also to be documented for continuity of care.
FOLLOW-UP INSTRUCTIONS
The patient is advised to follow up with her lead technical architect at [facility] in two weeks as scheduled.
MEDICATION RECONCILIATION
Toradol (ketorolac) was administered during the visit for pain management.
MEDICAL DECISION MAKING
1. Number and Complexity of Problems Addressed:
Chronic conditions affecting care include heart failure with reduced ejection fraction. Differential diagnosis considered: musculoskeletal chest pain, myocardial infarction, angina, costochondritis, pulmonary embolism, pneumothorax, gastroesophageal
reflux disease, aortic dissection, pericarditis, heart failure exacerbation.
2. Data:
Category 1
-Non-emergency department records reviewed: I reviewed records from [facility] indicating prior heart failure management.
-Clinical information was obtained from an independent historian: EMS initiated care but did not provide additional interventions.
Category 2
-My independent interpretation of the EKG indicated no changes suggestive of an active myocardial infarction.
Category 3
-Discussion of management with the patients cardiology team was emphasized for continuity of care.
3. Risk:
Consideration of Admission/Observation: Escalation of care including admission/observation was considered given the complexity and risk of the patients presenting complaint, exam findings, and underlying comorbidities. However, ultimately I feel the
patient is safe for outpatient management with close follow up. Reasoning: Work-up reassuring, does not reveal any acute life/organ threatening processes, patients symptoms well controlled upon reevaluation, reexamination is reassuring, vitals are
stable, patient agreeable with discharge, reliable for follow-up.
DIAGNOSIS
1. Musculoskeletal chest pain (ICD-10: M79.1)
2. Heart failure with reduced ejection fraction (ICD-10: I50.22)
Patient has an appointment in 2 weeks with her lead technical architect in the [facility]. She does report improvement after Toradol was given
Phy Exam
Physical Exam
Physical Exam:
See HPI
Scores
Heart Score for Chest Pain Patients
STEMI patient?: Not applicable
Course
Orders/Labs/Results
Orders:
Orders
06/16/25 12:52
Electrocardiogram (*1) Urgent
Reason for Study: Chest Pain
06/16/25 12:53
EKG- Treatment ONCE
06/16/25 13:14
CMP [Comprehensive Metabolic Panel] Urgent
Complete Blood Count/With Diff Urgent
NT-proBNP Urgent
Troponin I Urgent
06/16/25 13:15
Ketorolac [Toradol] 15 mg IV NOW STA
06/16/25 13:16
CR Chest Portable - 1 View Urgent
Comment:
Reason For Exam: cp
Reason Study Needs to be Portable: Patient Unstable
06/16/25 16:31
Troponin I Urgent
Abnormal Lab Results
06/16/25
13:14
MPV 10.9 H fL
(7.4-10.4)
Absolute Lymphs (auto) 3.7 H 10^3/uL
(1.2-3.4)
Absolute Monos (auto) 0.8 H 10^3/uL
(0.1-0.6)
BUN 24 H mg/dl
(7-17)
Glucose 113 H mg/dl
(70-99)
06/16/25 13:14
06/16/25 13:14
Vital Signs
Initial and Last Documented VS:
Initial Vital Signs
Pulse Resp BP
54 15 165/82
06/16/25 13:01 06/16/25 13:01 06/16/25 13:01
Last Documented Vital Signs
Temp Pulse Resp BP Pulse Ox
36.7 C 59 15 184/77 97
06/16/25 13:02 06/16/25 16:30 06/16/25 16:30 06/16/25 16:00 06/16/25 13:03
*Pulse Oximetry
Oxygen Mode of Delivery: Room air
Patient hypoxic: no
*Critical Care Note
Total Time (30-74mins, 75-104mins- exclusive of procedures): Not Applicable
ED Attending Note
-
Portions of this chart may have been created with voice recognition software.� Occasional wrong word or��sound alike� substitutions may have occurred due to the inherent limitations of voice recognition software.
Discharge Plan
Departure
Patient Disposition: Home (Routine Discharge)
Date of Disposition: 06/16/25
Time of Disposition: 17:27
Patient with high blood pressure during this ER visit?: Yes
Discharge Problem:
Chest pain
Instructions: Chest Pain NON-[employer] Follow Up, BLOOD PRESSURE
Prescriptions:
No Action
furosemide 40 mg tablet
40 mg PO BID Qty: 60 0RF
potassium chloride 20 mEq tablet extended release
20 meq PO DAILY Qty: 30 0RF
metoprolol succinate 50 mg tablet extended release 24 hr
50 mg PO DAILY Qty: 30 0RF
spironolactone 25 mg tablet
12.5 mg PO DAILY Qty: 30 0RF
aspirin 81 mg tablet,chewable
81 mg PO DAILY Qty: 30 0RF
mirtazapine 15 mg tablet
15 mg PO HS Qty: 30 0RF
dapagliflozin propanediol [Farxiga] 10 mg tablet
10 mg PO DAILY Qty: 30 0RF
Entresto 24-26 mg tablet
1 tab PO BID Qty: 30 0RF
furosemide [Lasix] 20 mg tablet
20 mg PO DAILY Qty: 30 0RF
atorvastatin [Lipitor] 40 mg tablet
40 mg PO DAILY Qty: 30 0RF
metoprolol succinate [Toprol XL] 50 mg tablet extended release 24 hr
50 mg PO DAILY Qty: 30 0RF
losartan 25 mg tablet
25 mg PO DAILY Qty: 30 0RF
sertraline [Zoloft] 25 mg tablet
25 mg PO DAILY Qty: 30 0RF
sertraline [Zoloft] 25 mg tablet
25 mg PO DAILY Qty: 30 0RF
aspirin 81 mg tablet
81 mg PO DAILY Qty: 30 0RF
Jardiance 10 mg tablet
10 mg PO DAILY Qty: 30 0RF
Referrals:
Shiva Stafford DO [Family Provider, Family Practice]
Activity Restrictions/Additional Instructions:
Your basic blood work is unremarkable. We did cardiac blood work which showed a troponin of 0.019 and 0.021 -this is the same as it was when you were here on June 11. Your BNP level is elevated at 3000 however much lower than what it was last
year when it was around 17,000. The chest x-ray showed no acute abnormality. Continue your current medications. Last February it was more significantly elevated at that time. I strongly recommend that you follow-up with your lead technical architect in the [place]. Return here if worse or other concerns.
Interventions
Interventions:
*Risk Screen - Suicide Last Done: 06/16/25 12:54
*General Assessment Last Done: 06/16/25 12:54
*Neglect/Abuse Screening Last Done: 06/16/25 12:54
*ED- Fall Risk Assessment Last Done: 06/16/25 12:54
*ED COVID-19 Vaccine History Last Done: 06/16/25 12:54
ED- Cardiac Assessment Last Done: 06/16/25 13:03
Discharge Date and Time
Print Language: AZERI
[2025-06-16 13:24] LABS: Hematocrit 40.4 % (37.0-47.0); Hemoglobin 13.9 g/dL (12.0-16.0); Mean Corp Hgb Conc. 34.4 g/dL (33.0-37.0); Mean Corpuscular Volume 84.5 fL (81.0-99.0); Nucleated Red Blood Cells % 0 %; Platelet Count 276 10^3/uL (130-400); Red Cell Dist. Width 12.7 % (11.5-14.5)
[2025-06-16] MEDS: TORADOL 15 MG IV (13:43)
[2025-06-16 13:48] LABS: Troponin I 0.019 ng/ml
[2025-06-16 13:51] LABS: ALT (SGPT) 32 U/L (0-35); AST (SGOT) 35 U/L (14-36); Albumin 4.2 g/dl (3.5-5.0); Alkaline Phosphatase 62 U/L (38-126); Blood Urea Nitrogen 24 mg/dl (7-17); Calcium 9.8 mg/dl (8.4-10.2); Carbon Dioxide 26 mmol/L (22-30); Chloride 105 mmol/L (98-107); Estimated Creatinine Clearance 69 ml/min; Glucose 113 mg/dl (70-99); Potassium 4.1 mmol/L (3.5-5.1); Sodium 139 mmol/L (135-145); Total Protein 7.2 g/dl (6.3-8.2); eGFR > 60.00
[2025-06-16 14:00] VITALS: BP 174/79
[2025-06-16 15:00] VITALS: BP 187/75
[2025-06-16 16:00] VITALS: BP 184/77
[2025-06-16 17:00] VITALS: BP 188/76
[2025-06-16 17:03] LABS: Troponin I 0.021 ng/ml
== END 2025-06-16 17:55 | disposition home or self-care (01) ==
LOC: EMR 12:50
PROVIDERS: Emergency Medicine; EMERGENCY PHYSICIAN Emergency Medicine; FAMILY PHYSICIAN Family Medicine
DX: R07.89 Other chest pain (principal); I50.20 Unspecified systolic (congestive) heart failure
CPT/HCPCS: 96374; 99284; 71045; 80053; 83880; 84484; 85025; 93005